=== PATIENT | male | born 1940 | race Caucasian/White ===

== ENCOUNTER 2024-08-11 17:17 | Inpatient (IN) ==
--- NOTE | 2024-08-11 17:36 | Emergency Department Note ---
Impression & Plan Sepsis, Non-ST elevation [place] (NSTEMI), Leukocytosis, Aspiration pneumonia ED Provider Note NAME: NU WILLARD AGE: 83 SEX: M : 1940 ARRIVES VIA: Walk-In INFORMANT: Patient ED PROVIDER(S): Shukri Mercado MD CHIEF COMPLAINT: Feverish, shortness of breath, cough, vomiting. PLAN: Disposition: Admit MEDICAL DECISION MAKING: The patient is a pleasant 83-year-old gentleman with past medical history of CAD with history of PCI remotely on low-dose aspirin daily, GERD who presents to the emergency department via walk-in, accompanied by family for worsening cough, congestion, shortness of breath, feverishness and nausea and vomiting that worsened today in the setting of starting to feel ill on Friday. 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 Patient reports numerous episodes of vomiting prior to arrival. He denies any diarrhea. Denies any urinary symptoms. He denies any known sick contacts. On evaluation the patient is ill-appearing in acute distress, febrile to 37.6 with heart rate in the 120s, respiratory rate in the 30s and blood pressure elevated. He appears clinically dry. He has rhonchi of bilateral lower lung calderón. Abdomen is nontender. Initial EKG demonstrates sinus tachycardia with marked ST abnormalities in the precordial leads without overt ST elevation. Repeat EKG following defervesced since and IV fluid hydration shows improved ST abnormalities. Chest x-ray with venous congestion with suspicion for patchy bibasilar infiltrates per my preliminary independent interpretation. WBC 18.25 with neutrophilia but no left shift. H/H and plates within normal limits. Magnesium 1.6 with IV repletion provided. LFTs unremarkable. High- sensitivity troponin is 300. Lipase is not elevated. Procalcitonin is elevated at 5.2 consistent with suspicion for infection and sepsis. Respiratory BioFire was negative. Blood culture obtained empiric treatment initiated with IV Zosyn. Repeat troponin 500s. Patient continues to deny chest pain. Repeat EKG is improved. IV heparin initiated. Aspirin deferred pending CT results. CTA of the chest and CT of the abdomen pelvis were ordered and pending. The patient and family agree with plan for admission for further management. Case was discussed with Dr. Barragan, [facility] hospitalist, who will evaluate the patient for admission. Further management per admitting team. CTA of the chest subsequently negative for PE. Evidence of aspiration is described. CT of the abdomen pelvis is negative for acute intra-abdominal process. Small hiatal hernia is present. Cholelithiasis present without evidence of cholecystitis or ductal dilatation. Further management per admitting team. Triage Nursing notes reviewed and agree them. Prior/external medical records reviewed Vital Signs: reviewed Differential diagnosis: Reactive airway disease, pneumonia, pneumothorax, COPD, CHF, infections, cardiac ischemia, pulmonary embolism, musculoskeletal, gastrointestinal, as well as other pathologies. ER treatment provided: See below. Diagnostics interpreted by me: ECG 1744: Sinus tachycardia, 117 bpm, no ectopy, marked ST abnormalities in the precordial leads without overt ST elevation. QTc 438, QRS 96. ECG 1942:Sinus tachycardia, 87 bpm, improved ST abnormalities without overt ST elevation, QTc 442, QRS 94. Cardiac Monitoring: An order for continuous cardiac monitoring was placed and demonstrated sinus tachycardia, 117 bpm, no ectopy. Laboratory studies: See below Imaging studies: See below Consultation(s): Case was discussed with Dr. Barragan, [facility] Hospitalist, who will evaluate the patient for admission. HPI: The patient is a pleasant 83-year-old gentleman with past medical history of CAD with history of PCI remotely on low-dose aspirin daily, GERD who presents to the emergency department via walk-in, accompanied by family for worsening cough, congestion, shortness of breath, feverishness and nausea and vomiting that worsened today in the setting of starting to feel ill on Friday. 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 Patient reports numerous episodes of vomiting prior to arrival. He denies any diarrhea. Denies any urinary symptoms. He denies any known sick contacts. ROS: See above HPI for pertinent positives & negatives. A total of 10 systems reviewed and were otherwise negative. VITALS:See Below PHYSICAL EXAMINATION: GENERAL: Awake, alert, ill-appearing, in no distress HENT: Normocephalic, atraumatic. Oropharynx with dry mucous membranes and otherwise unremarkable. EYES: Normal conjunctiva. Sclera non-icteric. NECK: Supple. No nuchal rigidity. FROM. No JVD. RESPIRATORY: Rhonchi bilateral lower lung calderón and otherwise clear. CARDIAC: Tachycardic rate, normal rhythm. Extremities warm and well perfused. Pulses equal. ABDOMEN: Soft, non-distended. No tenderness to palpation. No rebound or guarding. No masses. MUSCULOSKELETAL: Chest examination reveals no tenderness. The back is symmetrical on inspection without obvious abnormality. There is no CVA tenderness to palpation. No joint edema. LOWER EXTREMITIES: Calves are equal size bilaterally and non-tender. No edema. No discoloration. NEURO: Normal sensorium. No sensory or motor deficits noted. SKIN: No rash or jaundice noted. ED COURSE: Critical Care: I have personally spent greater than 45 minutes of critical care time in the direct management of this patient. This includes bedside care, interpretation of diagnostic studies, and testing, discussion with consultants, patient, and family members, and other required patient management activities. This 45 minutes is in excess of all separately billable procedures. Shukri Mercado MD Past Med/Surg History Problem List (Updated 08/12/24 @ 01:18 by Shukri Mercado MD) Aspiration pneumonia (Acute) Leukocytosis (Acute) Non-ST elevation KS (NSTEMI) (Acute) Sepsis (Acute) Medical History Hx of gastroesophageal reflux (GERD) Coronary artery disease Surgical History History of coronary artery stent placement Social History Smoking Status: Never smoker Hx Alcohol Use: No Hx Substance Use: No Preferred Language: Nepalese Communication Ability: Effective Recooperer Required: No Beliefs That Will Affect Care: None Current Living Situation: Spouse Feels Safe at Home: Yes Safety Concerns: Feels Safe At This Time Assistive Devices: Denture - Upper and Denture - Lower Allergies Allergies Allergy/AdvReac Type Severity Reaction Status Date / Time No Known Allergies Allergy Verified 08/11/24 19:43 Home Meds Home Medications Medication Instructions Recorded Confirmed albuterol sulfate 90 mcg/actuation 2 puff inhalation DIRECTED PRN 08/11/24 08/11/24 aerosol inhaler Shortness Of Breath amlodipine 10 mg tablet (Norvasc) 10 mg PO DAILY 08/11/24 08/11/24 aspirin 81 mg tablet,delayed 81 mg PO DAILY 08/11/24 08/11/24 release famotidine 40 mg tablet 20 mg PO BID 08/11/24 08/11/24 lisinopril 10 mg tablet 10 mg PO DAILY 08/11/24 08/11/24 loratadine 5 mg-pseudoephedrine ER 1 tab PO DAILY 08/11/24 08/11/24 120 mg tablet,extended release,12hr (Loratadine-D) metoprolol tartrate 25 mg tablet 25 mg PO BID 08/11/24 08/11/24 nitroglycerin 0.4 mg sublingual 0.4 mg sublingual DIRECTED PRN 08/11/24 08/11/24 tablet Chest Pain omeprazole 20 mg capsule,delayed 20 mg PO DAILY 08/11/24 08/11/24 release ondansetron HCl 4 mg tablet 4 mg PO TID PRN NAUSEA/VOMITING 08/11/24 08/11/24 rosuvastatin 20 mg tablet 20 mg PO DAILY 08/11/24 08/11/24 Results & Data (ED) Vital Signs Vital Signs - 24 hr 08/11/24 17:19 08/11/24 17:31 08/11/24 17:51 Temperature 37.6 C H Temperature Source Temporal Artery Scan Pulse Rate 124 H 120 H Pulse Rate [Apical] 118 H Pulse Rhythm Regular Pulse Strength Normal Respiratory Rate 20 24 24 Respiratory Effort / Characteristics Non-Labored Spontaneous Respiratory Depth Normal Blood Pressure 146/86 H Blood Pressure [Left Arm] 154/108 H Blood Pressure Mean 106 Blood Pressure Mean [Left Arm] 123 Blood Pressure Position Sitting Blood Pressure Position [Left Arm] Pulse Oximetry 92 94 95 Oxygen Delivery Method Room Air Room Air Room Air Sepsis Recent Fever Within 48 Hours No Sepsis New/Unexplained Change in Mental Status No Sepsis Action Taken by Nursing No Action Required 08/11/24 17:53 08/11/24 19:34 08/11/24 21:00 Temperature 37.2 C Temperature Source Oral Pulse Rate 120 H Pulse Rate [Apical] 104 H 97 H Pulse Rhythm Pulse Strength Respiratory Rate 30 H 18 Respiratory Effort / Characteristics Respiratory Depth Blood Pressure Blood Pressure [Left Arm] 112/75 119/72 Blood Pressure Mean Blood Pressure Mean [Left Arm] 87 87 Blood Pressure Position Blood Pressure Position [Left Arm] Semi-fowlers Pulse Oximetry 91 93 Oxygen Delivery Method Room Air Room Air Sepsis Recent Fever Within 48 Hours Sepsis New/Unexplained Change in Mental Status Sepsis Action Taken by Nursing 08/11/24 21:53 Temperature Temperature Source Pulse Rate 103 H Pulse Rate [Apical] Pulse Rhythm Pulse Strength Respiratory Rate Respiratory Effort / Characteristics Respiratory Depth Blood Pressure Blood Pressure [Left Arm] Blood Pressure Mean Blood Pressure Mean [Left Arm] Blood Pressure Position Blood Pressure Position [Left Arm] Pulse Oximetry Oxygen Delivery Method Sepsis Recent Fever Within 48 Hours Sepsis New/Unexplained Change in Mental Status Sepsis Action Taken by Nursing Laboratory Data Attestation: I reviewed the patient's lab results. 08/11/24 18:01 08/11/24 18:01 Lab Results 08/11/24 08/11/24 08/11/24 Range/Units 17:48 18:01 19:23 WBC 18.25 H (4.8-10.8) K/ul RBC 4.98 (4.70-6.10) M/uL Hgb 14.8 (14.0-18.0) g/dl Hct 45.9 (42.0-52.0) % MCV 92.2 (80.0-100.0) fL MCH 29.7 (25.0-34.0) pg MCHC 32.2 (32.0-36.0) g/dL RDW Std Deviation 47.3 H (36.4-46.3) fL RDW Coeff of Mandeep 14.0 (11.5-14.5) % Plt Count 169 (130-400) K/uL MPV 10.0 (9.4-12.4) fL Immature Gran % (Auto) 0.6 % Neut % (Auto) 94.4 % Lymph % (Auto) 1.2 % Elbert % (Auto) 2.9 % Eos % (Auto) 0.6 % Baso % (Auto) 0.3 % Neut # (Auto) 17.24 H (1.40-6.50) K/uL Lymph # (Auto) 0.21 L (1.20-3.40) K/uL Elbert # (Auto) 0.53 (0.11-0.59) K/uL Eos # (Auto) 0.11 (0.00-0.50) K/uL Baso # (Auto) 0.05 (0.00-0.20) K/uL Immature Gran # (Auto) 0.11 (0.01-0.20) K/uL RBC Morphology Unremarkable PT 11.2 (9.0-12.0) Seconds INR 1.0 (0.9-1.1) Sodium 138 (136-145) mmol/L Potassium 4.6 (3.5-5.1) mmol/L Chloride 102 (98-107) mmol/L Carbon Dioxide 25 (21-32) mmol/L Anion Gap 11 (3-11) BUN 18 (6-23) mg/dl Creatinine 1.64 H (0.6-1.4) mg/dl Est Cr Clr Drug Dosing Not Reportable eGFR 41.76 BUN/Creatinine Ratio 11.0 (10-20) Glucose 119 H (70-99(Fasting)) mg/dl Lactate 3.5 H* (0.4-2.0) mmol/L Calcium 9.6 (8.6-10.3) mg/dl Magnesium 1.6 L (1.7-2.4) mg/dl Total Bilirubin 0.8 (0.2-1.0) mg/dl Direct Bilirubin 0.2 (0-0.2) mg/dl AST 23 (13-39) U/L ALT 19 (7-52) U/L Alkaline Phosphatase 66 (34-104) U/L Troponin I High Sens 331.2 H* 529.3 H* D (0-20) pg/ml Total Protein 7.0 (6.0-8.3) gm/dl Albumin 4.3 (3.4-5.0) gm/dl Globulin 2.7 (2.5-4.0) gm/dl Albumin/Globulin Ratio 1.6 (0.9-2) Lipase 11 (11-82) U/L Procalcitonin 5.25 H (0-0.5) ng/ml Nasal Screen MRSA (PCR) (Negative) Adenovirus (PCR) Not Detected (NotDetected) B. pertussis DNA (PCR) Not Detected (NotDetected) B.parapertussis DNA PCR Not Detected (NotDetected) C. pneumoniae DNA (PCR) Not Detected (NotDetected) Coronavirus OC43 (PCR) Not Detected (NotDetected) Coronavirus HKU1 (PCR) Not Detected (NotDetected) Coronavirus 229E (PCR) Not Detected (NotDetected) SARS-CoV-2 (PCR) Not Detected (NotDetected) Coronavirus NL63 (PCR) Not Detected (NotDetected) Human Metapneumovir PCR Not Detected (NotDetected) Influenza Type A (PCR) Not Detected (NotDetected) Influenza Type B (PCR) Not Detected (NotDetected) M. pneumoniae (PCR) Not Detected (NotDetected) Parainfluenza 1 (PCR) Not Detected (NotDetected) Parainfluenza 2 (PCR) Not Detected (NotDetected) Parainfluenza 3 (PCR) Not Detected (NotDetected) Parainfluenza 4 (PCR) Not Detected (NotDetected) RSV (PCR) Not Detected (NotDetected) Entero/Rhino (PCR) Not Detected (NotDetected) 08/11/24 08/11/24 Range/Units 20:30 21:26 WBC (4.8-10.8) K/ul RBC (4.70-6.10) M/uL Hgb (14.0-18.0) g/dl Hct (42.0-52.0) % MCV (80.0-100.0) fL MCH (25.0-34.0) pg MCHC (32.0-36.0) g/dL RDW Std Deviation (36.4-46.3) fL RDW Coeff of Mandeep (11.5-14.5) % Plt Count (130-400) K/uL MPV (9.4-12.4) fL Immature Gran % (Auto) % Neut % (Auto) % Lymph % (Auto) % Elbert % (Auto) % Eos % (Auto) % Baso % (Auto) % Neut # (Auto) (1.40-6.50) K/uL Lymph # (Auto) (1.20-3.40) K/uL Elbert # (Auto) (0.11-0.59) K/uL Eos # (Auto) (0.00-0.50) K/uL Baso # (Auto) (0.00-0.20) K/uL Immature Gran # (Auto) (0.01-0.20) K/uL RBC Morphology PT (9.0-12.0) Seconds INR (0.9-1.1) Sodium (136-145) mmol/L Potassium (3.5-5.1) mmol/L Chloride (98-107) mmol/L Carbon Dioxide (21-32) mmol/L Anion Gap (3-11) BUN (6-23) mg/dl Creatinine (0.6-1.4) mg/dl Est Cr Clr Drug Dosing eGFR BUN/Creatinine Ratio (10-20) Glucose (70-99(Fasting)) mg/dl Lactate 3.0 H* (0.4-2.0) mmol/L Calcium (8.6-10.3) mg/dl Magnesium (1.7-2.4) mg/dl Total Bilirubin (0.2-1.0) mg/dl Direct Bilirubin (0-0.2) mg/dl AST (13-39) U/L ALT (7-52) U/L Alkaline Phosphatase (34-104) U/L Troponin I High Sens (0-20) pg/ml Total Protein (6.0-8.3) gm/dl Albumin (3.4-5.0) gm/dl Globulin (2.5-4.0) gm/dl Albumin/Globulin Ratio (0.9-2) Lipase (11-82) U/L Procalcitonin (0-0.5) ng/ml Nasal Screen MRSA (PCR) Negative (Negative) Adenovirus (PCR) (NotDetected) B. pertussis DNA (PCR) (NotDetected) B.parapertussis DNA PCR (NotDetected) C. pneumoniae DNA (PCR) (NotDetected) Coronavirus OC43 (PCR) (NotDetected) Coronavirus HKU1 (PCR) (NotDetected) Coronavirus 229E (PCR) (NotDetected) SARS-CoV-2 (PCR) (NotDetected) Coronavirus NL63 (PCR) (NotDetected) Human Metapneumovir PCR (NotDetected) Influenza Type A (PCR) (NotDetected) Influenza Type B (PCR) (NotDetected) M. pneumoniae (PCR) (NotDetected) Parainfluenza 1 (PCR) (NotDetected) Parainfluenza 2 (PCR) (NotDetected) Parainfluenza 3 (PCR) (NotDetected) Parainfluenza 4 (PCR) (NotDetected) RSV (PCR) (NotDetected) Entero/Rhino (PCR) (NotDetected) Administered Medications Heparin Sodium/Dextrose (Heparin 60407 Unit/500 Ml D5w) 25,000 units in 500 mls @ 19 mls/hr IV .Q24H JACK; Protocol Stop: 09/10/24 20:44 Last Admin: 08/11/24 21:25 Dose: 950 units/hr, 19 mls/hr Documented By: KAROLINA Co-signed By: IDNadine Sodium Chloride (Nss) 1,000 mls @ 100 mls/hr IV .Q10H JACK Stop: 08/12/24 21:44 Last Admin: 08/11/24 22:40 Dose: 100 mls/hr Documented By: KAROLINA Discontinued Medications Heparin Sodium (Porcine) (Heparin Sod (Porcine) 1000 Unit/Ml) 1 units IV NOW ONE Stop: 08/11/24 20:45 Last Admin: 08/11/24 21:25 Dose: 4,000 units Documented By: KAROLINA Co-signed By: TAYLOR Heparin Sodium/Dextrose (Heparin Iv Adult Wt-Based Low-Dose W/ Initial Bolus Protocol) 1 each IV NOW STA; Protocol Stop: 08/11/24 20:29 Last Admin: 08/11/24 20:59 Dose: 1 each Documented By: KAROLINA Acetaminophen (Ofirmev) 1,000 mg in 100 mls @ 400 mls/hr IV NOW STA Stop: 08/11/24 17:46 Last Infusion: 08/11/24 18:26 Dose: Infused Documented By: Admin: 08/11/24 18:02 Dose: 400 mls/hr Documented By: QGV Famotidine (Pepcid 20mg Iv Push) 20 mg in 5 mls @ 2.5 mls/min IV NOW STA Stop: 08/11/24 17:33 Last Admin: 08/11/24 18:03 Dose: 2.5 mls/min Documented By: QGV Sodium Chloride (Nss) 500 mls @ 999 mls/hr IV .Q31M ONE Stop: 08/11/24 18:03 Last Infusion: 08/11/24 18:39 Dose: Infused Documented By: Admin: 08/11/24 18:03 Dose: 999 mls/hr Documented By: QGV Magnesium Sulfate/Dextrose (Magnesium Sulfate / D5w) 1 gm in 100 mls @ 100 mls/hr IV NOW STA Stop: 08/11/24 20:08 Last Infusion: 08/11/24 21:40 Dose: Infused Documented By: Admin: 08/11/24 19:45 Dose: 100 mls/hr Documented By: KAROLINA Sodium Chloride (Nss) 1,000 mls @ 999 mls/hr IV .Q1H1M ONE Stop: 08/11/24 20:12 Last Infusion: 08/11/24 21:00 Dose: Infused Documented By: Admin: 08/11/24 19:36 Dose: 999 mls/hr Documented By: KAROLINA Piperacillin Sod/Tazobactam Sod (Zosyn) 4.5 gm in 100 mls @ 200 mls/hr IV NOW ONE; Protocol Stop: 08/11/24 19:41 Last Infusion: 08/11/24 21:00 Dose: Infused Documented By: Admin: 08/11/24 19:44 Dose: 200 mls/hr Documented By: KAROLINA Sodium Chloride (Nss) 500 mls @ 999 mls/hr IV .Q31M ONE Stop: 08/11/24 19:42 Last Infusion: 08/11/24 21:40 Dose: Infused Documented By: Admin: 08/11/24 20:53 Dose: 999 mls/hr Documented By: KAROLINA Vancomycin HCl 2,000 mg/ (Sodium Chloride) 540 mls @ 200 mls/hr IV NOW ONE Stop: 08/12/24 00:41 Last Admin: 08/11/24 22:40 Dose: 200 mls/hr Documented By: KAROLINA Magnesium Sulfate/Dextrose (Magnesium Sulfate / D5w) 1 gm in 100 mls @ 50 mls/hr IV ONE ONE Stop: 08/12/24 00:37 Last Infusion: 08/12/24 00:57 Dose: Infused Documented By: Admin: 08/11/24 23:16 Dose: 50 mls/hr Documented By: SALINAS Ioversol (Optiray 320 125ml) 115 ml IV ONCE ONE Stop: 08/11/24 20:10 Last Admin: 08/11/24 20:09 Dose: 115 ml Documented By: JACKLYN Ondansetron HCl (Ondansetron Inj 2 Mg/Ml 2 Ml Vial) 4 mg IV NOW STA Stop: 08/11/24 17:33 Last Admin: 08/11/24 18:03 Dose: 4 mg Documented By: QGV Imaging Data Radiologist's Impression: Chest X-Ray 08/11/24 17:31 INDICATION: Chest pain. TECHNIQUE: Frontal radiograph of the chest. COMPARISON: None. FINDINGS: Cardiomegaly. Mild to moderate pulmonary vascular congestion. No infiltrate, pleural effusion or pneumothorax. No acute osseous abnormality evident. IMPRESSION: Mild to moderate pulmonary vascular congestion. Electronically signed by Joe Beckman 08-11-2024 7:09 PM Abdomen/Pelvis CT 08/11/24 19:10 Exam(s): CT ABDOMEN + PELVIS With Contrast IV Amt: 115 ml optiray 320 EXAM: CT Abdomen and Pelvis With Intravenous Contrast CLINICAL HISTORY: Reason for exam: n/v, fever. TECHNIQUE: Axial computed tomography images of the abdomen and pelvis with intravenous contrast. CTDI is 35.62 mGy and DLP is 2285.06 mGy-cm. Automated exposure control was utilized for the study. A dose lowering technique was utilized adhering to the principles of ALARA. CONTRAST: Patient received 115 ml optiray 320 of IV contrast COMPARISON: No relevant prior studies available. FINDINGS: Lung bases: Unremarkable. No mass. No consolidation. Mediastinum: There is moderate sized hiatus hernia. ABDOMEN: Liver: Unremarkable. No mass. Gallbladder and bile ducts: Multiple dependent gallstones. No ductal dilation. Pancreas: Unremarkable. No mass. No ductal dilation. Spleen: Unremarkable. No splenomegaly. Adrenals: Unremarkable. No mass. Kidneys and ureters: Unremarkable. No solid mass. No hydronephrosis. Stomach and bowel: Unremarkable. No obstruction. No mucosal thickening. PELVIS: Appendix: Normal appendix. Bladder: Unremarkable. No mass. Reproductive: Mild prostatomegaly. ABDOMEN and PELVIS: Intraperitoneal space: Unremarkable. No free air. No significant fluid collection. Bones/joints: Moderately advanced multilevel degenerative disc disease changes seen in the lumbar spine. Posterior disc osteophyte complex seen at L2/3, L4/5 and L5/S1 junction. No acute fracture. No dislocation. Soft tissues: Unremarkable. Vasculature: Unremarkable. No abdominal aortic aneurysm. Lymph nodes: Unremarkable. No enlarged lymph nodes. IMPRESSION: 1. No acute abdominal process identified 2. Small hiatus hernia 3. Cholelithiasis Electronically signed by: Chema Ashby MD 08/11/24 21:40 PM Chest CTA 08/11/24 19:10 Exam(s): CTA CHEST IV Amt: 115 ml optiray 320 EXAM: CT Angiography Chest With Intravenous Contrast CLINICAL HISTORY: Reason for exam: vomiting, sob, elevated trop, r/o PE. TECHNIQUE: Axial computed tomographic angiography images of the chest with intravenous contrast. CTDI is 35.62 mGy and DLP is 2285.06 mGy-cm. Automated exposure control was utilized for the study. A dose lowering technique was utilized adhering to the principles of ALARA. MIP reconstructed images were created and reviewed. COMPARISON: No relevant prior studies available. FINDINGS: Pulmonary arteries: Unremarkable. No pulmonary embolism. Aorta: No acute findings. No thoracic aortic aneurysm. Lungs: Patchy inflammatory groundglass densities are seen in the lingula. Discoid atelectasis seen in the lung bases. No mass. Pleural space: Unremarkable. No significant effusion. No pneumothorax. Heart: Unremarkable. No cardiomegaly. No significant pericardial effusion. No evidence of RV dysfunction. Mediastinum: Moderate sized hiatus hernia. Bones/joints: No acute fracture. No dislocation. Soft tissues: Unremarkable. Lymph nodes: Unremarkable. No enlarged lymph nodes. IMPRESSION: 1. Patchy inflammatory groundglass densities in the lingula which could be from aspiration changes 2. No acute pulmonary embolism 3. Hiatus hernia Electronically signed by: Chema Ashby MD 08/11/24 21:43 PM Discharge Plan Visit Data Chief Complaint: Flu Like Symptoms Stated Complaint: VOMIT, FLU LIKE SYMPTOMS ED Provider: Shukri Mercado Discharge Problem: Sepsis, Non-ST elevation [place] (NSTEMI), Leukocytosis, Aspiration pneumonia Discharge Instructions Interventions: ED Discharge Assessment Last Done: 08/12/24 00:20 Discharge Problem: Sepsis Qualifiers: Sepsis type: sepsis due to unspecified organism Sepsis acute organ dysfunction status: with acute organ dysfunction Severe sepsis acute organ dysfunction type: unspecified Severe sepsis shock status: without septic shock Qualified Code(s): A41.9 - Sepsis, unspecified organism Leukocytosis Qualifiers: Leukocytosis type: unspecified Qualified Code(s): D72.829 - Elevated white blood cell count, unspecified Aspiration pneumonia Qualifiers: Aspiration pneumonia type: unspecified Laterality: bilateral Lung location: l ower lobe of lung Qualified Code(s): J69.0 - Pneumonitis due to inhalation of food and vomit
[2024-08-11] MEDS: ACETAMINOPHEN 1,000 MG/100 ML VIAL IV STA (18:02)
[2024-08-11] MEDS: ONDANSETRON INJ 2 MG/ML 2 ML VIAL IV STA (18:03)
[2024-08-11] MEDS: FAMOTIDINE 20MG IV PUSH 20 MG/5 ML SYR IV STA (18:03)
[2024-08-11] MEDS: SODIUM CHLORIDE 0.9% 500 ML IV ONE ×2 (18:03→20:53)
[2024-08-11 18:35] LABS: Hematocrit (blood only) 45.9 % (42.0-52.0); Hemoglobin 14.8 g/dl (14.0-18.0); Mean Corpuscular Hemoglobin 29.7 pg (25.0-34.0); Mean Corpuscular Hgb Conc 32.2 g/dL (32.0-36.0); Mean Corpuscular Volume 92.2 fL (80.0-100.0); Platelet Count 169 K/uL (130-400); RDW Standard Deviation 47.3 fL (36.4-46.3); Red Blood Count 4.98 M/uL (4.70-6.10); White Blood Count 18.25 K/ul (4.8-10.8)
[2024-08-11 18:51] LABS: Basophils # (auto) 0.05 K/uL (0.00-0.20); Basophils % (auto) 0.3 %; Eosinophils # (auto) 0.11 K/uL (0.00-0.50); Eosinophils % (auto) 0.6 %; Immature Granulocytes # (auto) 0.11 K/uL (0.01-0.20); Immature Granulocytes % (auto) 0.6 %; Lymphocytes # (auto) 0.21 K/uL (1.20-3.40); Lymphocytes % (auto) 1.2 %; Monocytes # (auto) 0.53 K/uL (0.11-0.59); Monocytes % (auto) 2.9 %; Neutrophils # (auto) 17.24 K/uL (1.40-6.50); Neutrophils % (auto) 94.4 %; RBC Morphology Unremarkable
[2024-08-11 18:52] LABS: Alanine Aminotransferase 19 U/L (7-52); Albumin Globulin Ratio 1.6 (0.9-2); Albumin Level 4.3 gm/dl (3.4-5.0); Alkaline Phosphatase 66 U/L (34-104); Anion Gap 11 (3-11); Aspartate Aminotransferase 23 U/L (13-39); Bilirubin Direct 0.2 mg/dl (0-0.2); Bilirubin,Total 0.8 mg/dl (0.2-1.0); Blood Urea Nitrogen 18 mg/dl (6-23); Calcium 9.6 mg/dl (8.6-10.3); Carbon Dioxide 25 mmol/L (21-32); Chloride 102 mmol/L (98-107); Globulin 2.7 gm/dl (2.5-4.0); Glucose 119 mg/dl (70-99(Fasting)); Lipase 11 U/L (11-82); Magnesium 1.6 mg/dl (1.7-2.4); Potassium 4.6 mmol/L (3.5-5.1); Sodium 138 mmol/L (136-145)
[2024-08-11 18:56] LABS: Adenovirus PCR Not Detected (NotDetected); Bordetella parapertussis PCR Not Detected (NotDetected); Bordetella pertussis PCR Not Detected (NotDetected); Chlamydia pneumoniae PCR Not Detected (NotDetected); Coronavirus 229E PCR Not Detected (NotDetected); Coronavirus CoV-2 (COVID19)PCR Not Detected (NotDetected); Coronavirus HKU1 PCR Not Detected (NotDetected); Coronavirus NL63 PCR Not Detected (NotDetected); Coronavirus OC43PCR Not Detected (NotDetected); Human Metapneumovirus PCR Not Detected (NotDetected); Influenza A PCR Not Detected (NotDetected); Influenza B PCR Not Detected (NotDetected); Mycoplasma pneumoniae PCR Not Detected (NotDetected); Parainfluenza Virus 1 PCR Not Detected (NotDetected); Parainfluenza Virus 2 PCR Not Detected (NotDetected); Parainfluenza Virus 3 PCR Not Detected (NotDetected); Parainfluenza Virus 4 PCR Not Detected (NotDetected); Respiratory Syncytial VirusPCR Not Detected (NotDetected); Rhinovirus/Enterovirus PCR Not Detected (NotDetected)
[2024-08-11 19:03] LABS: Prothrombin Time 11.2 Seconds (9.0-12.0)
[2024-08-11 19:06] LABS: Troponin I High Sensitivity 331.2 pg/ml (0-20)
--- NOTE | 2024-08-11 19:10 | XRay Report ---
INDICATION: Chest pain. TECHNIQUE: Frontal radiograph of the chest. COMPARISON: None. FINDINGS: Cardiomegaly. Mild to moderate pulmonary vascular congestion. No infiltrate, pleural effusion or pneumothorax. No acute osseous abnormality evident. IMPRESSION: Mild to moderate pulmonary vascular congestion. Electronically signed by Joe Beckman 08-11-2024 7:09 PM
[2024-08-11] MEDS: SODIUM CHLORIDE 0.9% 1,000 ML IV ONE (19:36)
[2024-08-11] MEDS: PIPERACILLIN/TAZOBACTAM 4.5 GM/100 ML BAG IV ONE (19:44)
[2024-08-11] MEDS: MAGNESIUM SULFATE / D5W 1 GM/100 ML BAG IV STA (19:45)
[2024-08-11] MEDS: OPTIRAY 320 125ml IV ONE (20:09)
[2024-08-11] MEDS: Heparin IV Adult Wt-Based Low-Dose w/ INITIAL Bolus Protocol IV STA (20:59)
[2024-08-11] MEDS: HEPARIN 25000 UNIT/500 ML D5W 25,000 UNITS/500 ML BAG IV SCH (21:25)
[2024-08-11] MEDS: HEPARIN SOD (PORCINE) 1000 UNIT/ML IV ONE (21:25)
--- NOTE | 2024-08-11 21:41 | CT Scan Report ---
Exam(s): CT ABDOMEN + PELVIS With Contrast IV Amt: 115 ml optiray 320 EXAM: CT Abdomen and Pelvis With Intravenous Contrast CLINICAL HISTORY: Reason for exam: n/v, fever. TECHNIQUE: Axial computed tomography images of the abdomen and pelvis with intravenous contrast. CTDI is 35.62 mGy and DLP is 2285.06 mGy-cm. Automated exposure control was utilized for the study. A dose lowering technique was utilized adhering to the principles of ALARA. CONTRAST: Patient received 115 ml optiray 320 of IV contrast COMPARISON: No relevant prior studies available. FINDINGS: Lung bases: Unremarkable. No mass. No consolidation. Mediastinum: There is moderate sized hiatus hernia. ABDOMEN: Liver: Unremarkable. No mass. Gallbladder and bile ducts: Multiple dependent gallstones. No ductal dilation. Pancreas: Unremarkable. No mass. No ductal dilation. Spleen: Unremarkable. No splenomegaly. Adrenals: Unremarkable. No mass. Kidneys and ureters: Unremarkable. No solid mass. No hydronephrosis. Stomach and bowel: Unremarkable. No obstruction. No mucosal thickening. PELVIS: Appendix: Normal appendix. Bladder: Unremarkable. No mass. Reproductive: Mild prostatomegaly. ABDOMEN and PELVIS: Intraperitoneal space: Unremarkable. No free air. No significant fluid collection. Bones/joints: Moderately advanced multilevel degenerative disc disease changes seen in the lumbar spine. Posterior disc osteophyte complex seen at L2/3, L4/5 and L5/S1 junction. No acute fracture. No dislocation. Soft tissues: Unremarkable. Vasculature: Unremarkable. No abdominal aortic aneurysm. Lymph nodes: Unremarkable. No enlarged lymph nodes. IMPRESSION: 1. No acute abdominal process identified 2. Small hiatus hernia 3. Cholelithiasis Electronically signed by: Chema Ashby MD 08/11/24 21:40 PM
[2024-08-11] MEDS ORDERED: VANCOMYCIN CONSULT ACTIVE PRN (21:42)
--- NOTE | 2024-08-11 21:44 | CT Scan Report ---
Exam(s): CTA CHEST IV Amt: 115 ml optiray 320 EXAM: CT Angiography Chest With Intravenous Contrast CLINICAL HISTORY: Reason for exam: vomiting, sob, elevated trop, r/o PE. TECHNIQUE: Axial computed tomographic angiography images of the chest with intravenous contrast. CTDI is 35.62 mGy and DLP is 2285.06 mGy-cm. Automated exposure control was utilized for the study. A dose lowering technique was utilized adhering to the principles of ALARA. MIP reconstructed images were created and reviewed. COMPARISON: No relevant prior studies available. FINDINGS: Pulmonary arteries: Unremarkable. No pulmonary embolism. Aorta: No acute findings. No thoracic aortic aneurysm. Lungs: Patchy inflammatory groundglass densities are seen in the lingula. Discoid atelectasis seen in the lung bases. No mass. Pleural space: Unremarkable. No significant effusion. No pneumothorax. Heart: Unremarkable. No cardiomegaly. No significant pericardial effusion. No evidence of RV dysfunction. Mediastinum: Moderate sized hiatus hernia. Bones/joints: No acute fracture. No dislocation. Soft tissues: Unremarkable. Lymph nodes: Unremarkable. No enlarged lymph nodes. IMPRESSION: 1. Patchy inflammatory groundglass densities in the lingula which could be from aspiration changes 2. No acute pulmonary embolism 3. Hiatus hernia Electronically signed by: Chema Ashby MD 08/11/24 21:43 PM
[2024-08-11] MEDS ORDERED: VANCOMYCIN HCL 1,000 MG/270 ML BAG IV SCH (21:45)
--- NOTE | 2024-08-11 22:38 | History & Physical Report ---
Date of Service August 11, 2024 Assessment & Plan (1) Sepsis: Plan: 83-year-old male unassigned patient with past med history significant for CAD status post stent in 2005, hypertension, hyperlipidemia, GERD presents with nausea vomiting and fevers. Patient says since Friday he was constipated. Last night had a lot of nausea and vomiting. Today was running fevers. Not feeling well. Says his grandson brought him to the hospital. Denies any chest pain. Denies cough. Denies shortness of breath. Denies any headache. No back pain. No neck pain. Some abdominal discomfort from constipation. Denies bloody stools. Micturating okay. Ambulates okay. 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 In 2017 he had a skull fracture as tractor tire blew and hit him on head and says he was in [facility] for 15 days. Currently hemodynamics are okay. Patient says he is follows with [facility] cardiology. Sepsis Was having nausea vomiting and fevers Presents with tachycardia and elevated WBC. Procalcitonin 5.2 Respiratory BioFire negative Received Zosyn and aggressive fluids in the ER CTA chest shows possible aspiration pneumonitis CT abdomen pelvis no acute findings. Cholelithiasis Initial lactic acid 3.5 and repeat is 3 Will continue with IV Zosyn and IV vancomycin and doxy IV fluids normal saline at 100 mL/h Follow repeat labs Follow cultures Close monitor hemodynamics Non-ST elevated AL Initial troponin 331 and repeat [address] depressions from lead V2 to V6 somewhat improved after fluids. No old EKG to compare Possible demand ischemia Patient denies any chest pain or shortness of breath Empirically started on IV heparin Will follow on serial enzymes and echo and repeat EKG in a.m. Telemetry N.p.o. Cardiac consult in a.m. for further recommendations History of CAD status post stent On aspirin and statin Will start on beta-xavier once sepsis improves Hypertension Holding lisinopril, amlodipine and metoprolol for now for sepsis Need to verify home medications. Not able to reach family currently GERD On omeprazole and famotidine Hyperlipidemia On statin DVT prophylaxis On IV heparin Disposition Telemetry Full code. History of Present Illness Chief Complaint: Sepsis Primary Care Provider: NO PCP 83-year-old male unassigned patient with past med history significant for CAD status post stent in 2005, hypertension, hyperlipidemia, GERD presents with nausea vomiting and fevers. Patient says since Friday he was constipated. Last night had a lot of nausea and vomiting. Today was running fevers. Not feeling well. Says his grandson brought him to the hospital. Denies any chest pain. Denies cough. Denies shortness of breath. Denies any headache. No back pain. No neck pain. Some abdominal discomfort from constipation. Denies bloody stools. Micturating okay. Ambulates okay. 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 In 2017 he had a skull fracture as tractor tire blew and hit him on head and says he was in [facility] for 15 days. Currently hemodynamics are okay. Patient says he is follows with [facility] cardiology. Past medical history. As mentioned above Past surgical history. Cardiac cath. Open skull for removal of hematoma bilateral in 2017. Repair of right eye socket. Repair of nasomaxillary complex fracture. Repair of right eye wound cornea. Social history. . No smoking. No alcohol history no drug use. Family history. No famished on file. Allergies Allergy/AdvReac Type Severity Reaction Status Date / Time No Known Allergies Allergy Verified 08/11/24 19:43 Home Medications Medication Instructions Recorded Confirmed Type albuterol sulfate 90 mcg/actuation 2 puff inhalation DIRECTED PRN 08/11/24 08/11/24 History aerosol inhaler Shortness Of Breath amlodipine 10 mg tablet (Norvasc) 10 mg PO DAILY 08/11/24 08/11/24 History aspirin 81 mg tablet,delayed 81 mg PO DAILY 08/11/24 08/11/24 History release famotidine 40 mg tablet 20 mg PO BID 08/11/24 08/11/24 History lisinopril 10 mg tablet 10 mg PO DAILY 08/11/24 08/11/24 History loratadine 5 mg-pseudoephedrine ER 1 tab PO DAILY 08/11/24 08/11/24 History 120 mg tablet,extended release,12hr (Loratadine-D) metoprolol tartrate 25 mg tablet 25 mg PO BID 08/11/24 08/11/24 History nitroglycerin 0.4 mg sublingual 0.4 mg sublingual DIRECTED PRN 08/11/24 08/11/24 History tablet Chest Pain omeprazole 20 mg capsule,delayed 20 mg PO DAILY 08/11/24 08/11/24 History release ondansetron HCl 4 mg tablet 4 mg PO TID PRN NAUSEA/VOMITING 08/11/24 08/11/24 History rosuvastatin 20 mg tablet 20 mg PO DAILY 08/11/24 08/11/24 History Past Med/Surg History Problem List (Updated 08/12/24 @ 01:18 by Shukri Mercado MD) Aspiration pneumonia (Acute) Leukocytosis (Acute) Non-ST elevation AL (NSTEMI) (Acute) Sepsis (Acute) Medical History Hx of gastroesophageal reflux (GERD) Coronary artery disease Surgical History History of coronary artery stent placement Social History Smoking Status: Never smoker Hx Alcohol Use: No Hx Substance Use: No Preferred Language: Kosovan Communication Ability: Effective Associate Financial Advisor Required: No Beliefs That Will Affect Care: None Current Living Situation: Spouse Feels Safe at Home: Yes Safety Concerns: Feels Safe At This Time Assistive Devices: Denture - Upper and Denture - Lower Review of Systems Review of Systems: All systems reviewed & are unremarkable except as noted in HPI & below Physical Exam Physical Exam: General- Not in acute distress Head- atraumatic Eyes- Right eye pupil fixed and dilated. ENT- oropharynx clear Neck- supple, no JVD. Lungs- clear to auscultation no wheezing or crackles Heart- regular rate and rhythm; no murmur, no gallop. Abdomen- normal bowel sounds, soft, nontender, no distension Extremities- no pretibial edema, no erythema seen Neuro- alert, oriented EOMI; no facial palsy; no dysarthria; moves extremities Results & Data Results & Data Vital Signs (Past 12 Hours) Vital Signs Temp Pulse Pulse Resp BP BP Pulse Ox 08/11/24 21:53 103 H 08/11/24 21:00 97 H 18 119/72 93 08/11/24 19:34 37.2 C 104 H 30 H 112/75 91 08/11/24 17:53 120 H 08/11/24 17:51 118 H 24 154/108 H 95 08/11/24 17:31 120 H 24 94 08/11/24 17:19 37.6 C H 124 H 20 146/86 H 92 O2 Del Method 08/11/24 21:53 08/11/24 21:00 Room Air 08/11/24 19:34 Room Air 08/11/24 17:53 08/11/24 17:51 Room Air 08/11/24 17:31 Room Air 08/11/24 17:19 Room Air Diagnostic Findings Laboratory Results WBC 18.25 K/ul (4.8-10.8) H 08/11/24 18:01 RBC 4.98 M/uL (4.70-6.10) 08/11/24 18:01 Hgb 14.8 g/dl (14.0-18.0) 08/11/24 18:01 Hct 45.9 % (42.0-52.0) 08/11/24 18:01 MCV 92.2 fL (80.0-100.0) 08/11/24 18:01 MCH 29.7 pg (25.0-34.0) 08/11/24 18:01 MCHC 32.2 g/dL (32.0-36.0) 08/11/24 18:01 RDW Std Deviation 47.3 fL (36.4-46.3) H 08/11/24 18:01 RDW Coeff of Mandeep 14.0 % (11.5-14.5) 08/11/24 18:01 Plt Count 169 K/uL (130-400) 08/11/24 18:01 MPV 10.0 fL (9.4-12.4) 08/11/24 18:01 Immature Gran % (Auto) 0.6 % 08/11/24 18:01 Neut % (Auto) 94.4 % 08/11/24 18:01 Lymph % (Auto) 1.2 % 08/11/24 18:01 Stanley % (Auto) 2.9 % 08/11/24 18:01 Eos % (Auto) 0.6 % 08/11/24 18:01 Baso % (Auto) 0.3 % 08/11/24 18:01 Neut # (Auto) 17.24 K/uL (1.40-6.50) H 08/11/24 18:01 Lymph # (Auto) 0.21 K/uL (1.20-3.40) L 08/11/24 18:01 Stanley # (Auto) 0.53 K/uL (0.11-0.59) 08/11/24 18:01 Eos # (Auto) 0.11 K/uL (0.00-0.50) 08/11/24 18:01 Baso # (Auto) 0.05 K/uL (0.00-0.20) 08/11/24 18:01 Immature Gran # (Auto) 0.11 K/uL (0.01-0.20) 08/11/24 18:01 RBC Morphology Unremarkable 08/11/24 18: PT 11.2 Seconds (9.0-12.0) 08/11/24 18: INR 1.0 (0.9-1.1) 08/11/24 18:01 Sodium 138 mmol/L (136-145) 08/11/24 18: Potassium 4.6 mmol/L (3.5-5.1) 08/11/24 18:01 Chloride 102 mmol/L (98-107) 08/11/24 18:01 Carbon Dioxide 25 mmol/L (21-32) 08/11/24 18:01 Anion Gap 11 (3-11) 08/11/24 18:01 BUN 18 mg/dl (6-23) 08/11/24 18:01 Creatinine 1.64 mg/dl (0.6-1.4) H 08/11/24 18:01 Est Cr Clr Drug Dosing Not Reportable 08/11/24 18: eGFR 41.76 08/11/24 18:01 BUN/Creatinine Ratio 11.0 (10-20) 08/11/24 18:01 Glucose 119 mg/dl (70-99(Fasting)) H 08/11/24 18:01 Lactate 3.0 mmol/L (0.4-2.0) H* 08/11/24 21:26 Calcium 9.6 mg/dl (8.6-10.3) 08/11/24 18:01 Magnesium 1.6 mg/dl (1.7-2.4) L 08/11/24 18:01 Total Bilirubin 0.8 mg/dl (0.2-1.0) 08/11/24 18:01 Direct Bilirubin 0.2 mg/dl (0-0.2) 08/11/24 18:01 AST 23 U/L (13-39) 08/11/24 18:01 ALT 19 U/L (7-52) 08/11/24 18:01 Alkaline Phosphatase 66 U/L (34-104) 08/11/24 18:01 Troponin I High Sens 529.3 pg/ml (0-20) H* D 08/11/24 19:23 Total Protein 7.0 gm/dl (6.0-8.3) 08/11/24 18: Albumin 4.3 gm/dl (3.4-5.0) 08/11/24 18: Globulin 2.7 gm/dl (2.5-4.0) 08/11/24 18: Albumin/Globulin Ratio 1.6 (0.9-2) 08/11/24 18:01 Lipase 11 U/L (11-82) 08/11/24 18:01 Procalcitonin 5.25 ng/ml (0-0.5) H 08/11/24 18:01 Nasal Screen MRSA (PCR) Negative (Negative) 08/11/24 20:30 Adenovirus (PCR) Not Detected (NotDetected) 08/11/24 17:48 B. pertussis DNA (PCR) Not Detected (NotDetected) 08/11/24 17:48 B.parapertussis DNA PCR Not Detected (NotDetected) 08/11/24 17:48 C. pneumoniae DNA (PCR) Not Detected (NotDetected) 08/11/24 17:48 Coronavirus OC43 (PCR) Not Detected (NotDetected) 08/11/24 17:48 Coronavirus HKU1 (PCR) Not Detected (NotDetected) 08/11/24 17:48 Coronavirus 229E (PCR) Not Detected (NotDetected) 08/11/24 17:48 SARS-CoV-2 (PCR) Not Detected (NotDetected) 08/11/24 17:48 Coronavirus NL63 (PCR) Not Detected (NotDetected) 08/11/24 17:48 Human Metapneumovir PCR Not Detected (NotDetected) 08/11/24 17:48 Influenza Type A (PCR) Not Detected (NotDetected) 08/11/24 17:48 Influenza Type B (PCR) Not Detected (NotDetected) 08/11/24 17:48 M. pneumoniae (PCR) Not Detected (NotDetected) 08/11/24 17:48 Parainfluenza 1 (PCR) Not Detected (NotDetected) 08/11/24 17:48 Parainfluenza 2 (PCR) Not Detected (NotDetected) 08/11/24 17:48 Parainfluenza 3 (PCR) Not Detected (NotDetected) 08/11/24 17:48 Parainfluenza 4 (PCR) Not Detected (NotDetected) 08/11/24 17:48 RSV (PCR) Not Detected (NotDetected) 08/11/24 17:48 Entero/Rhino (PCR) Not Detected (NotDetected) 08/11/24 17:48 Impressions Chest X-Ray 08/11/24 17:31 INDICATION: Chest pain. TECHNIQUE: Frontal radiograph of the chest. COMPARISON: None. FINDINGS: Cardiomegaly. Mild to moderate pulmonary vascular congestion. No infiltrate, pleural effusion or pneumothorax. No acute osseous abnormality evident. IMPRESSION: Mild to moderate pulmonary vascular congestion. Electronically signed by Joe Beckman 08-11-2024 7:09 PM Abdomen/Pelvis CT 08/11/24 19:10 Exam(s): CT ABDOMEN + PELVIS With Contrast IV Amt: 115 ml optiray 320 EXAM: CT Abdomen and Pelvis With Intravenous Contrast CLINICAL HISTORY: Reason for exam: n/v, fever. TECHNIQUE: Axial computed tomography images of the abdomen and pelvis with intravenous contrast. CTDI is 35.62 mGy and DLP is 2285.06 mGy-cm. Automated exposure control was utilized for the study. A dose lowering technique was utilized adhering to the principles of ALARA. CONTRAST: Patient received 115 ml optiray 320 of IV contrast COMPARISON: No relevant prior studies available. FINDINGS: Lung bases: Unremarkable. No mass. No consolidation. Mediastinum: There is moderate sized hiatus hernia. ABDOMEN: Liver: Unremarkable. No mass. Gallbladder and bile ducts: Multiple dependent gallstones. No ductal dilation. Pancreas: Unremarkable. No mass. No ductal dilation. Spleen: Unremarkable. No splenomegaly. Adrenals: Unremarkable. No mass. Kidneys and ureters: Unremarkable. No solid mass. No hydronephrosis. Stomach and bowel: Unremarkable. No obstruction. No mucosal thickening. PELVIS: Appendix: Normal appendix. Bladder: Unremarkable. No mass. Reproductive: Mild prostatomegaly. ABDOMEN and PELVIS: Intraperitoneal space: Unremarkable. No free air. No significant fluid collection. Bones/joints: Moderately advanced multilevel degenerative disc disease changes seen in the lumbar spine. Posterior disc osteophyte complex seen at L2/3, L4/5 and L5/S1 junction. No acute fracture. No dislocation. Soft tissues: Unremarkable. Vasculature: Unremarkable. No abdominal aortic aneurysm. Lymph nodes: Unremarkable. No enlarged lymph nodes. IMPRESSION: 1. No acute abdominal process identified 2. Small hiatus hernia 3. Cholelithiasis Electronically signed by: Chema Ashby MD 08/11/24 21:40 PM Chest CTA 08/11/24 19:10 Exam(s): CTA CHEST IV Amt: 115 ml optiray 320 EXAM: CT Angiography Chest With Intravenous Contrast CLINICAL HISTORY: Reason for exam: vomiting, sob, elevated trop, r/o PE. TECHNIQUE: Axial computed tomographic angiography images of the chest with intravenous contrast. CTDI is 35.62 mGy and DLP is 2285.06 mGy-cm. Automated exposure control was utilized for the study. A dose lowering technique was utilized adhering to the principles of ALARA. MIP reconstructed images were created and reviewed. COMPARISON: No relevant prior studies available. FINDINGS: Pulmonary arteries: Unremarkable. No pulmonary embolism. Aorta: No acute findings. No thoracic aortic aneurysm. Lungs: Patchy inflammatory groundglass densities are seen in the lingula. Discoid atelectasis seen in the lung bases. No mass. Pleural space: Unremarkable. No significant effusion. No pneumothorax. Heart: Unremarkable. No cardiomegaly. No significant pericardial effusion. No evidence of RV dysfunction. Mediastinum: Moderate sized hiatus hernia. Bones/joints: No acute fracture. No dislocation. Soft tissues: Unremarkable. Lymph nodes: Unremarkable. No enlarged lymph nodes. IMPRESSION: 1. Patchy inflammatory groundglass densities in the lingula which could be from aspiration changes 2. No acute pulmonary embolism 3. Hiatus hernia Electronically signed by: Chema Ashby MD 08/11/24 21:43 PM ECG Additional Comments: ECG. Sinus tach rate of 117. Marked ST abnormality possible septal subendocardial injury. QTc 438 Code Status & VTE Plan VTE Prophylaxis Plan VTE Prophylaxis will be ordered: Yes
[2024-08-11] MEDS: VANCOMYCIN HCL 2,000 MG in SODIUM CHLORIDE 0.9% 500 ML IV ONE (22:40)
[2024-08-11] MEDS: SODIUM CHLORIDE 0.9% 1,000 ML IV SCH (22:40)
[2024-08-11] MEDS: MAGNESIUM SULFATE / D5W 1 GM/100 ML BAG IV ONE (23:16)
[2024-08-12] MEDS ORDERED: ALBUTEROL HFA 8 GM INHALER INH PRN (00:19)
[2024-08-12] MEDS ORDERED: NITROGLYCERIN SL 0.4 MG/TAB TAB SL PRN (00:19)
[2024-08-12] MEDS ORDERED: ONDANSETRON INJ 2 MG/ML 2 ML VIAL IV PRN (00:19)
[2024-08-12 01:42] LABS: Appearance Urine Clear (Clear); Bacteria Urine Automated None Seen (None Seen); Bilirubin Urine Negative (Negative); Blood Urine Trace (Negative); Cast Urine Automated 0-2 /lpf (0-2); Color Urine Yellow; Epithelial Cell Urine Auto 0-2 /hpf (0-2); Glucose Urine UA Negative (Negative); Ketones Urine Negative (Negative); Leukocyte Esterase Urine Negative (Negative); Nitrite Urine Negative (Negative); Protein Urine Negative (Negative); Specific Gravity Urine > 1.045 (1.000-1.030); Urobilinogen Urine Negative (Negative); WBC Urine Automated 0-5 /hpf (0-5); pH Urine 6.5 (4.5-7.5)
[2024-08-12 03:53] LABS: Basophils # (auto) 0.04 K/uL (0.00-0.20); Basophils % (auto) 0.3 %; Eosinophils # (auto) 0.37 K/uL (0.00-0.50); Eosinophils % (auto) 2.9 %; Hematocrit (blood only) 42.7 % (42.0-52.0); Hemoglobin 13.7 g/dl (14.0-18.0); Immature Granulocytes # (auto) 0.04 K/uL (0.01-0.20); Immature Granulocytes % (auto) 0.3 %; Lymphocytes % (auto) 3.9 %; Mean Corpuscular Hemoglobin 30.2 pg (25.0-34.0); Mean Corpuscular Hgb Conc 32.1 g/dL (32.0-36.0); Mean Corpuscular Volume 94.1 fL (80.0-100.0); Mean Platelet Volume 9.7 fL (9.4-12.4); Monocytes # (auto) 0.44 K/uL (0.11-0.59); Monocytes % (auto) 3.4 %; Neutrophils # (auto) 11.51 K/uL (1.40-6.50); Neutrophils % (auto) 89.2 %; Platelet Count 167 K/uL (130-400); RDW Coefficient of Variation 14.4 % (11.5-14.5); RDW Standard Deviation 49.1 fL (36.4-46.3); Red Blood Count 4.54 M/uL (4.70-6.10)
[2024-08-12 04:08] LABS: BUN Creatinine Ratio 11.8 (10-20); Calcium 8.5 mg/dl (8.6-10.3); Chol HDL Ratio 5.6 (0-5); Creatinine Clr Calc Pharmacy 44.5 ml/min; Magnesium 2.2 mg/dl (1.7-2.4); Potassium 4.4 mmol/L (3.5-5.1)
[2024-08-12 04:20] LABS: Troponin I High Sensitivity 5515.4 pg/ml (0-20)
[2024-08-12] MEDS: SODIUM CHLORIDE 0.9% 500 ML IV ONE (07:27)
[2024-08-12] MEDS: PIPERACILLIN/TAZOBACTAM 4.5 GM/100 ML BAG IV STA (07:46)
--- OUTSIDE RECORDS SUMMARY | 2024-08-12 07:57 | External Medical Summary | Continuity of Care Document ---
Author Name Unknown Organization Family Practice [facility], [facility] Address [address] [place] [address] Phone [phone] Care Team Providers Care Cardiac Nurse Practitioner Name Role Phone Yocasta Medina Care Team Information Receiv er [phone] Problems Active Problems Provider Date Allergic rhinitis Brandie Tabares PA-C Onset : 02/11/2017 Essential hypertension Brandie Tabares PA-C Onset: 09/15/2017 Hyperlipidemia Brandie Tabares PA-C Onset: 09/15/2017 Gastro-esophageal reflux dis ease with esophagitis Brandie Tabares PA-C Onset: 09/15/2017 Coronary arteriosclerosis Isabella Pemberton JR Onset: 03/31/2018 History of placement of sten t for coronary artery disease Paul Starkey JR, MD Onset: 03/31/2018 Atherosclerosis of coronary artery without angina pectoris Paul Starkey JR, MD Onset: 03/31/2018 Social History Type Date Description Comments Sex Male Tobacco Use Reviewed: 03/19/24 Never Smoked Cigarette s Smoking Status Reviewed: 03/19/24 Never Smoked Cigaret laura Tobacco Use Reviewed: 07/29/23 Never Smoked Cigars Tobacco Use Reviewed: 07/29/23 Never Smoked A Pipe Smokeless Tobacco 07/29/2023 Never Used Smokeless To bacco ETOH Use 09/15/2017 Denies alcohol use Recreational Drug Use 09/15/2017 Never Used Drugs Allergies and adverse reactions Description No Known Drug Allergies Medications Active Medications SIG Qnty Indications Order ing Provider Date Amoxicillin/Clavula sherrill Jtnfiakdv220-161lm Tablets take one tab two times a day for 10 days 20tabs J32.0 Huong Bai MD 03/19/2024 Rkfjdwbucl47wc Tablets take one tablet orally once a day for five days. 5tabs J32.0 Huong Bai MD 03/19/2024 Pfvdehcethg483bw Capsules take one tab three times a day as needed 30caps J32.0 Huong Bai MD 03/19/2024 Albuterol Sulfate OXS588(90Base) mcg/Act Aerosol take 2 puff as needed for shortness of breath. 8.5Each J32.0 Huong Bai MD 03/19/2024 Gcwfjplwn345-624qk Tablets one tab PO twice a day for 14 days 28tabs J01.80 Huong Bai MD 03/19/2024 Metoprolol Hocemscn79ml Tablets Take One-Half Tablet By Mouth Twice Daily 90tabs I10 Huong Bai MD 02/11/2024 Fast Acting [id number] Tablets Sub 1 by mouth every day 90tabs Huong acosta MD 01/29/2024 Methylprednisolone4 mg TBPK Take By Mouth as Directed Per Package 21units Huong Bai MD 09/22/2023 Egtcmjeodz8mr Tablets Take 1 Tablet By Mouth Once Daily as Needed 90tabs Huong Bai MD 09/10/2023 Btkxzhku54jme/0.5ML Suspension Rec one inj intramuscular 1units Huong Bai MD 01/27/2023 Rgrvureetu38nx Tablets Take 1 Tablet By Mouth Once Daily In The Evening 90tabs Huong Bai MD 11/01/2022 Nitroglycerin0.4mg Tablets Sub Dissolve One Under The Tongue Every Five Minutes Up To Three Dose as Needed For Chest Pain 25tabs Huong Bai MD 11/07/2021 Loratadine-D 56JQ8-523pk Tablets ER 12HR Take One Tablet By Mouth Once Daily For Sinuses 90tabs J30.1 Varinder Renner MD 01/12/2021 Ipratropium Bromide0.06% Solution use 2 sprays in each nostril every 6 hours as needed for runny nose. 45ml Varinder Renner MD 12/16/2019 Rosuvastatin Pvlbnre69tb Tablets Take One Tablet By Mouth Once Daily 90tabs E78.5 Huong Bai MD 04/19/[address] Take One Capsule By Mouth Once Daily 90caps K29.00 Paul Starkey JR, MD 12/29/2017 Jokoqfq87nef/Act Suspension 2 sprays each nostril daily 1units J30.89 Paul Starkey JR, MD 09/15/[address] 1 by mouth every day Unknown /0 000 History Medications Lsxnququos812wh Capsules one capsule two times daily x 5 days 10caps Huong Bai MD 01/29/2024 - 02/03/2024 Medications Administered in Office Medication SIG Qnty Indications Ordering Provider Date Injection Dexamethasone Sodium Phosphate, 1 MGInjection Austyn Carr PA-C 07/04 Injection Kenalog [address] [facility] [id number] Huong Bai MD 1 06/04/2022 Immunizations CPT Code Status Date Vaccine Lot # [id number] Given 01/30/2024 Shingrix [id number] U-FLU Given 03/26/2023 Influenza,Unspecified 371 [id number] 91549 Given 03/26/2023 Influenza Vaccine High Do se 0.5ML Age 65 & > [id number] 98509 Given 04/02/2022 Moderna Sars-Co v-2 (Covid-19) Vaccine, BiValent Booster [id number] U-FLU Given 03/20/2022 Influenza,Unspecified as1 [id number] 33729 Given 03/20/2022 Influenza Virus Vaccine, Quadrivalent (Cciiv4), Derived From Cell [id number] 12269 Given 09/18/2021 Moderna Covid-1 9 Vaccine 50mcg Booster-EMR Doc Only [id number] U-FLU Given 04/20/2021 Influenza,Unspecified 19155 Given 04/20/2021 Influenza Virus Vaccine, Quadrivalent (Cciiv4), Derived From 5 Given 04/06/2021 Moderna Sars-Co v-2 (Cov-19) vacc,100 mcg/ 0.5 mL 12Y+EMR Doc Only [id number] 42712 Given 09/15/2020 Moderna Sars-Co v-2 (Cov-19) vacc,100 mcg/ 0.5 mL 12Y+EMR Doc Only [id number] 66811 Given 08/18/2020 Moderna Sars-Co v-2 (Cov-19) vacc,100 mcg/ 0.5 mL 12Y+EMR Doc Only [id number] 15524 Given 05/21/2019 Pneumococcal Vaccine/Pneu movax 23 [id number] 67723 Given 01/19/2019 Shingrix 45538 Given 09/01/2018 Pneumococcal Conjugate-Pr evnar 13 [id number] 71343 Given 10/05/2016 Pneumococcal Conjugate-Pr evnar 13 Vital Signs Date Vital Result Comment 03/19/2024 2:12pm BP Systolic 136 mmHg BP Diastolic 82 mmHg Body Temperature 97.7 F Heart Rate 64 /min Respiratory Rate 22 /min Weight 203.12 lb Weight 92.138 kg Height 69 inches 5'9" BMI (Body Mass Index) 30.0 kg/m2 O2 % BldC Oximetry 94 % [place] Body Weight 160 lb 01/29/2024 7:54am BP Systolic 148 mmHg BP Diastolic 88 mmHg BP Systolic Recheck 134 mmHg BP Diastolic Recheck 80 mmHg Body Temperature 96.9 F Heart Rate 83 /min Respiratory Rate 20 /min Weight 202.12 lb Weight 91.684 kg Height 69 inches 5'9" BMI (Body Mass Index) 29.8 kg/m2 O2 % BldC Oximetry 96 % [place] Body Weight 160 lb Results Test Acquired Date Facility Test Result H/L Range Note Laboratory test finding 03/19/2024 [facility] (In Office Test) Sars Antigen - In Office negative CBC W/Diff 01/22/2024 [facility]. [address] [place] [address] [phone] WBC 6.4 10^3/M3 3.1-9.2 RBC 4.49 10^6/M3 4.00-5.80 HGB 13.9 GR/DL 12.5-17.5 HCT 41.3 % 37.5-52.5 MCV 92.0 CUMICR 82.6-95.8 MCH 30.9 PICOGR 27.9-32.9 MCHC 33.6 % 32.6-35.4 RDW 14.9 % High 11.4-14.6 PLT 190 10^3/M3 140-350 MPV 8.4 CUMICR 7.0-10.6 %Neut 61.3 % 40.0-75.0 %Lymph 24.9 % 17.0-45.0 %Hendricks 10.6 % 1.0-11.0 %Eos 2.7 % 0.0-6.0 %Baso 0.5 % 0.0-2.0 #Neut 3.9 10^3/M3 1.5-8.0 #Lymph 1.6 10^3/M3 0.8-3.2 #Hendricks 0.7 10^3/M3 0.0-0.8 #Eos 0.2 10^3/m3 0.0-0.4 #Baso 0.0 10^3/m3 0.0-0.2 Comp. Met 01/22/2024 [facility]. [address] [place] [address] Glucose 107 mg/dL 70-110 BUN 15 mg/dL 6-25 Creatinine 1.3 mg/dL 0.7-1.3 Sodium 141 mEq/L 135-145 Potassium 3.9 mEq/L 3.5-5.0 Chloride 104 mEq/L 95-107 Co-2 28 mEq/L 24-31 Alk Phos 72 IU/L 43-122 Alt(SGPT) 17 IU/L 10-40 Ast(Sgot) 20 IU/L 3-42 T.Bilirubin 0.3 mg/dL 0.1-1.3 Calcium 9.2 mg/dL 8.5-10.6 Tot.Protein 6.1 g/dL 5.8-8.0 Albumin 4.2 g/dL 3.0-5.2 Globulin 1.9 g/dL Low 2.0-3.4 GFR 56 ML/MIN/1.73 SQM Low >60 Lipid 01/22/2024 [facility]. [address] [place] [address] Cholesterol 231 mg/dL High 0-200 1 Triglyceride 351 mg/dL High 0-150 2 HDLD 40 mg/dL See Comment 3 Measured LDL 173 mg/dL High 0-130 4 Calc VLDL 70.2 mg/dL See Comment 5 Chol/HDL 5.8 RATIO See Comment 6 Non-HDL 191 mg/dL See Comment 7 Laboratory test finding 01/22/2024 [facility]. [address] [place] [address] [phone] TSH 1.17 uIU/mL 0.50-6.00 Psa2 1.1 ng/mL 0.0-4.0 Hba1c 01/22/2024 [facility]. [address] [place] [address] A1c 5.80 % 4.70-6.50 8 Laboratory test finding 12/15/2023 [facility]. [address] [place] [address] [phone] BNP 90.0 pg/mL 0.0-100.0 CBC No Diff 12/15/2023 [facility]. [address] [place] [address] [phone] WBC 7.2 10^3/M3 3.1-9.2 RBC 4.84 10^6/M3 4.00-5.80 HGB 14.1 GR/DL 12.5-17.5 HCT 44.8 % 37.5-52.5 MCV 92.7 CUMICR 82.6-95.8 MCH 29.3 PICOGR 27.9-32.9 MCHC 31.6 % Low 32.6-35.4 RDW 16.2 % High 11.4-14.6 PLT 212 10^3/M3 140-350 MPV 8.3 CUMICR 7.0-10.6 Manual Diff 12/15/2023 [facility]. [address] [place] [address] [phone] Seg 75 45-75 Lymph 18 Low 20-45 Hendricks 6 0-10 Eosin 1 0-6 Baso 0 0-2 RBC Morphology NORMAL 1 CHOLESTEROL Less than 200mg/dl Low risk 201-239 mg/dl Borderline risk Equal to or greater 240mg/dl High risk 2 TRIGLYCERIDES Less than 150mg/dl Normal 150-199mg/dl Borderline 200-499mg/dl High Greater than 500mg/dl Very High 3 HDL <40mg/dl Elevated Risk 41-59mg/dl Risk >=60mg/dl Least Risk 4 LDL <100mg/dl Optimal 100-129mg/dl Near Optimal 130-159mg/dl Borderline High 160-189mg/dl High >=190 Very High 5 VLDL Less than 30mg/dl Normal 6 CHOL/HDL <4.0 Optimal 4.0-5.0 Borderline >6.0 High Risk 7 NON-HDL 30mg/dl higher than LDL Target 8 MEAN GLUCOSE IN mg/d L/A1c% POOR CONTROL FAIR CONTROL GOOD CONTROL EXCELLENT CONTROL 360-14 210-9 180-8 120-6 330-13 150-7 90-5 300-12 270-11 240-10 Procedures Date Code Description Status 01/29/2024 G2211 Continuation of care e/m vis it add on Completed 01/29/2024 3079F PVRP Diastolic BP 80-89 MMHG Completed 01/29/2024 3075F PVRP Systolic BP 130 To 139 MMHG Completed 01/22/2024 57304 Venipuncture Routine Complet ed 12/15/2023 40942 Remove Impact Cerumen Irriga tion Completed 12/15/2023 87237 Venipuncture Routine Complet ed Medical Devices Description No Information Available Encounters Type Date Location Provider Dx Diagnosis Office Visit 03/19/2024 2:15p Rupert Bai MD J32.0 Chronic maxillary sinusitis J20.9 Acute bronchitis, un specified Office Visit 01/29/2024 8:00a Rupert macias PA-C I10 Essential (primary) hypertension E78.2 Mixed hyperlipidemia N18.30 Chronic kidney disea se, stage 3 unspecified J32.0 Chronic maxillary si nusitis L03.113 Cellulitis of right upper limb Assessments Date Code Description Provider 04/01/2024 E78.2 Mixed hyperlipidemia Austyn Carr PA-C 04/01/2024 N40.1 Benign prostatic hyperplasia with lower urinary tract symptoms Austyn Carr PA-C 03/19/2024 J32.0 Chronic maxillary sinusitis Huong Bai MD 03/19/2024 J20.9 Acute bronchitis, unspecifie d Huong Bai MD 03/01/2024 I10 Essential (primary) hyperten hank Bai MD 03/01/2024 E78.2 Mixed hyperlipidemia Huong Bai MD 03/01/2024 N18.3 Chronic kidney disease, stag e 3 (moderate) Huong Bai MD 01/31/2024 I10 Essential (primary) hyperten hank Brown Bruno, PA-C 01/31/2024 E78.2 Mixed hyperlipidemia Austyn MccoySj Carr, PA-C 01/31/2024 J32.0 Chronic maxillary sinusitis Austyn Brown Bruno, PA-C 01/29/2024 I10 Essential (primary) hyperten hank Brown Bruno, PA-C 01/29/2024 E78.2 Mixed hyperlipidemia Austyn MccoySj Carr, PA-C 01/29/2024 N18.30 Chronic kidney d isease, stage 3 unspecified Austyn MccoySj Carr, PA-C 01/29/2024 J32.0 Chronic maxillary sinusitis Austyn MccoySj Carr, PA-C 01/29/2024 L03.113 Cellulitis of right upper li mb Austyntimmy Carr, PA-C 01/22/2024 I10 Essential (primary) hyperten hank Huong Bai MD 01/22/2024 I10 Essential (primary) hyperten hank Lab - [place] 01/22/2024 E78.2 Mixed hyperlipidemia Huong Bai MD 01/22/2024 E78.2 Mixed hyperlipidemia Lab - [place] 01/22/2024 N18.3 Chronic kidney disease, stag e 3 (moderate) Huong Bai MD 01/22/2024 N18.3 Chronic kidney disease, stag e 3 (moderate) Lab - [place] 01/22/2024 N40.1 Benign prostatic hyperplasia with lower urinary tract symptoms Huong Bai MD 01/22/2024 N40.1 Benign prostatic hyperplasia with lower urinary tract symptoms Lab - [place] 01/22/2024 R73.01 Impaired fasting glucose Bismark Bai MD 01/22/2024 R73.01 Impaired fasting glucose Lab - [place] 12/15/2023 H61.23 Impacted cerumen, bilateral Huong Bai MD 12/15/2023 H61.23 Impacted cerumen, bilateral Lab - [place] 12/15/2023 R06.02 Shortness of breath Huong Bai MD 12/15/2023 R06.02 Shortness of breath [facility] [place] Plan of Treatment 03/19/2024 - Huong Bai MD* J32.0 Chronic maxillary sinusitis* New Medication:* Amoxicillin/Clavulanate Potassium 875-125 mg - take one tab two times a day for 10 days * Prednisone 20 mg - take one tablet orally once a day for five days. * Benzonatate 100 mg - take one tab three times a day as needed * Albuterol Sulfate HFA 108(90 Base) mcg/Act - take 2 puff as needed for shortness of breath. * Comments:* will start her on abx along with short course of Prednisone and symptomatic management * J20.9 Acute bronchitis, unspecified* Recommendations:* Symptomatic care. Call if worsening or no improvement. Functional Status Description No Information Available Mental Status Description No Information Available Referrals Description No Information Available
--- OUTSIDE RECORDS SUMMARY | 2024-08-12 07:57 | External Medical Summary | Continuity of Care Document ---
Author Name Unknown Organization Family Practice [facility] Address [address] [place] [address] Phone [phone] Care Team Providers Care Seed Sales Manager Name Role Phone Yocasta Medina Care Team Information Receiv er [phone] Problems Active Problems Provider Date Allergic rhinitis Brandie Tabares PA-C Onset : 02/11/2017 Essential hypertension Brandie Tabares PA-C Onset: 09/15/2017 Hyperlipidemia Brandie Tabares PA-C Onset: 09/15/2017 Gastro-esophageal reflux dis ease with esophagitis Brandei Tabares PA-C Onset: 09/15/2017 Coronary arteriosclerosis Isabella [...] Indications Order ing Provider Date Amoxicillin/Clavula sherrill Kfdcmthhp179-894rr Tablets take one tab two times a day for 10 days 20tabs J32.0 Huong Bai MD 03/19/2024 Zbugzuxrnq77es Tablets take one tablet orally once a day for five days. 5tabs J32.0 Huong Bai MD 03/19/2024 Pxyxkgohrqx870ew Capsules take one tab three times a day as needed 30caps J32.0 Huong Bai MD 03/19/2024 Albuterol Sulfate QKI398(90Base) mcg/Act Aerosol take 2 puff as needed for shortness of breath. 8.5Each J32.0 Huong Bai MD 03/19/2024 Pifckssrf586-480dc Tablets one tab PO twice a day for 14 days 28tabs J01.80 Huong Bai MD 03/19/2024 Metoprolol Dqepgfin40ee Tablets Take One-Half Tablet By Mouth Twice Daily 90tabs I10 Huong Bai MD 02/11/2024 Fast Acting K891699jjz Tablets Sub 1 by mouth every day 90tabs Huong acosta MD 01/29/2024 Methylprednisolone4 mg TBPK Take By Mouth as Directed Per Package 21units Huong Bai MD 09/22/2023 Dxixpdokxa1gf Tablets Take 1 Tablet By Mouth Once Daily as Needed 90tabs Huong Bai MD 09/10/2023 Snbycdgj13frn/0.5ML Suspension Rec one inj intramuscular 1units Huong Bai MD 01/27/2023 Gkoxbnuifw77yw Tablets Take 1 Tablet By Mouth Once Daily In The Evening 90tabs Huong Bai MD 11/01/2022 Nitroglycerin0.4mg Tablets Sub Dissolve One Under The Tongue Every Five Minutes Up To Three Dose as Needed For Chest Pain 25tabs Huong Bai MD 11/07/2021 Loratadine-D 63UZ8-418le Tablets ER 12HR Take One Tablet By Mouth Once Daily For Sinuses 90tabs J30.1 Varinder Renner MD 01/12/2021 Ipratropium Bromide0.06% Solution use 2 sprays in each nostril every 6 hours as needed for runny nose. 45ml Varinder Renner MD 12/16/2019 Rosuvastatin Dtbwuny31ew Tablets Take One Tablet By Mouth Once Daily 90tabs E78.5 Huong Bai MD 04/19/[address] Take One Capsule By Mouth Once Daily 90caps K29.00 Paul Starkey JR, MD 12/29/2017 Jhyfsll10ksp/Act Suspension 2 sprays each nostril daily 1units J30.89 Paul Starkey JR, MD 09/15/[address] 1 by mouth every day Unknown /0 000 History Medications Abavyrrzbe349we Capsules one capsule two times daily x 5 days 10caps Huong Bai MD 01/29/2024 - 02/03/2024 Medications Administered in Office Medication SIG Qnty Indications Ordering Provider Date Injection Dexamethasone Sodium Phosphate, 1 MGInjection Austyn Carr PA-C 07/04 Injection Kenalog 10 MG [facility] [id number] Huong Bai MD 1 06/04/2022 Immunizations CPT Code Status Date Vaccine Lot # 70785 Given 01/30/2024 Shingrix [id number] U-FLU Given 03/26/2023 Influenza,Unspecified 371 600 45275 Given 03/26/2023 Influenza Vaccine High Do se 0.5ML Age 65 & > [id number] 18628 Given 04/02/2022 Moderna Sars-Co v-2 (Covid-19) Vaccine, BiValent Booster 12y+ [id number] U-FLU Given 03/20/2022 Influenza,Unspecified as1 594b 79086 Given 03/20/2022 Influenza Virus Vaccine, Quadrivalent (Cciiv4), Derived From Cell [id number] 91553 Given 09/18/2021 Moderna Covid-1 9 Vaccine 50mcg Booster-EMR Doc Only [id number] U-FLU Given 04/20/2021 Influenza,Unspecified 47291 Given 04/20/2021 Influenza Virus Vaccine, Quadrivalent (Cciiv4), Derived From 8 Given 04/06/2021 Moderna Sars-Co v-2 (Cov-19) vacc,100 mcg/ 0.5 mL 12Y+EMR Doc Only [id number] 73447 Given 09/15/2020 Moderna Sars-Co v-2 (Cov-19) vacc,100 mcg/ 0.5 mL 12Y+EMR Doc Only [id number] 81623 Given 08/18/2020 Moderna Sars-Co v-2 (Cov-19) vacc,100 mcg/ 0.5 mL 12Y+EMR Doc Only [id number] 66545 Given 05/21/2019 Pneumococcal Vaccine/Pneu movax 23 [id number] 83333 Given 01/19/2019 Shingrix 19179 Given 09/01/2018 Pneumococcal Conjugate-Pr evnar 13 [id number] 50355 Given 10/05/2016 Pneumococcal Conjugate-Pr evnar 13 Vital Signs Date Vital Result Comment 03/19/2024 2:12pm BP Systolic 136 mmHg BP Diastolic 82 mmHg Body Temperature 97.7 F Heart Rate 64 /min Respiratory Rate 22 /min Weight 203.12 lb Weight 92.138 kg Height 69 inches 5'9" BMI (Body Mass Index) 30.0 kg/m2 O2 % BldC Oximetry 94 % [place] Body Weight 160 lb 01/29/2024 7:54am BP Systolic 148 mmHg BP Diastolic 88 mmHg BP Systolic Recheck 134 mmHg BP Diastolic Recheck 80 mmHg Body Temperature 96.9 F Heart Rate 83 /min Respiratory Rate 20 /min Weight 202.12 lb Weight 91.684 kg Height 69 inches 5'9" BMI (Body Mass Index) 29.8 kg/m2 O2 % BldC Oximetry 96 % [place] Body Weight 160 lb Results Test Acquired Date Facility Test Result H/L Range Note Laboratory test finding 03/19/2024 [facility] (In Office Test) Sars Antigen - In Office negative CBC W/Diff 01/22/2024 [facility]. [address] [place] [address] WBC 6.4 10^3/M3 3.1-9.2 RBC 4.49 10^6/M3 4.00-5.80 HGB 13.9 GR/DL 12.5-17.5 HCT 41.3 % 37.5-52.5 MCV 92.0 CUMICR 82.6-95.8 MCH 30.9 PICOGR 27.9-32.9 MCHC 33.6 % 32.6-35.4 RDW 14.9 % High 11.4-14.6 PLT 190 10^3/M3 140-350 MPV 8.4 CUMICR 7.0-10.6 %Neut 61.3 % 40.0-75.0 %Lymph 24.9 % 17.0-45.0 %Callahan 10.6 % 1.0-11.0 %Eos 2.7 % 0.0-6.0 %Baso 0.5 % 0.0-2.0 #Neut 3.9 10^3/M3 1.5-8.0 #Lymph 1.6 10^3/M3 0.8-3.2 #Callahan 0.7 10^3/M3 0.0-0.8 #Eos 0.2 10^3/m3 0.0-0.4 #Baso 0.0 10^3/m3 0.0-0.2 Comp. Met 01/22/2024 [facility]. [address] [place] [address] Glucose 107 mg/dL 70-110 BUN 15 mg/dL [...] 56 ML/MIN/1.73 SQM Low >60 Lipid 01/22/2024 [facility]. [address] [place] [address] Cholesterol 231 mg/dL High 0-200 1 Triglyceride 351 mg/dL High 0-150 2 HDLD 40 mg/dL See Comment 3 Measured LDL 173 mg/dL High 0-130 4 Calc VLDL 70.2 mg/dL See Comment 5 Chol/HDL 5.8 RATIO See Comment 6 Non-HDL 191 mg/dL See Comment 7 Laboratory test finding 01/22/2024 [facility]. [address] [place] [address] [phone] TSH 1.17 uIU/mL 0.50-6.00 Psa2 1.1 ng/mL 0.0-4.0 Hba1c 01/22/2024 [facility]. [address] [place] [address] [phone] A1c 5.80 % 4.70-6.50 8 Laboratory test finding 12/15/2023 [facility]. [address] [place] [address] [phone] BNP 90.0 pg/mL 0.0-100.0 CBC No Diff 12/15/2023 [facility]. [address] [place] [address] [phone] WBC 7.2 10^3/M3 3.1-9.2 RBC 4.84 10^6/M3 4.00-5.80 HGB 14.1 GR/DL 12.5-17.5 HCT 44.8 % 37.5-52.5 MCV 92.7 CUMICR 82.6-95.8 MCH 29.3 PICOGR 27.9-32.9 MCHC 31.6 % Low 32.6-35.4 RDW 16.2 % High 11.4-14.6 PLT 212 10^3/M3 140-350 MPV 8.3 CUMICR 7.0-10.6 Manual Diff 12/15/2023 [facility]. [address] [place] [address] Seg 75 45-75 Lymph 18 Low 20-45 Callahan 6 0-10 Eosin 1 0-6 Baso 0 [...] BP 130 To 139 MMHG Completed 01/22/2024 54008 Venipuncture Routine Complet ed 12/15/2023 16284 Remove Impact Cerumen Irriga tion Completed 12/15/2023 16917 Venipuncture Routine Complet ed Medical Devices Description [...] upper limb Assessments Date Code Description Provider 03/19/2024 J32.0 Chronic maxillary sinusitis Huong Bai MD 03/19/2024 J20.9 Acute bronchitis, unspecifie d Huong Bai MD 03/01/2024 I10 Essential (primary) hyperten hank Huong Bai MD 03/01/2024 E78.2 Mixed hyperlipidemia Huong Bai MD 03/01/2024 N18.3 Chronic kidney disease, stag e 3 (moderate) Huong Bai MD 01/31/2024 I10 Essential (primary) hyperten hank Carr PA-C 01/31/2024 E78.2 Mixed hyperlipidemia Austyn Carr PA-C 01/31/2024 J32.0 Chronic maxillary sinusitis AustynELSI ChowdhuryC 01/29/2024 I10 Essential (primary) hyperten hank GarciaELSI ChowdhruyC 01/29/2024 E78.2 Mixed hyperlipidemia Austyntimmy Carr, ELSIC 01/29/2024 N18.30 Chronic kidney d isease, stage 3 unspecified ELSI FerrerC 01/29/2024 J32.0 Chronic maxillary sinusitis Austyn Carr, ABEL-C 01/29/2024 L03.113 Cellulitis of right upper li mb ELSI FerrerC 01/22/2024 I10 Essential (primary) hyperten hank Huong Bai MD 01/22/2024 I10 Essential (primary) hyperten hank Lab - [place] 01/22/2024 E78.2 Mixed hyperlipidemia Huong Bai MD 01/22/2024 E78.2 Mixed hyperlipidemia Lab - [place] 01/22/2024 N18.3 Chronic kidney disease, stag e 3 (moderate) Huong Bai MD 01/22/2024 N18.3 Chronic kidney disease, stag e 3 (moderate) Lab - [place] 01/22/2024 N40.1 Benign prostatic hyperplasia with lower urinary tract symptoms Huong Bai MD 01/22/2024 N40.1 Benign prostatic hyperplasia with lower urinary tract symptoms Lab - [place] 01/22/2024 R73.01 Impaired fasting glucose Bismark Bai MD 01/22/2024 R73.01 Impaired fasting glucose Lab - [place] 12/15/2023 H61.23 Impacted cerumen, bilateral Huong Bai MD 12/15/2023 H61.23 Impacted cerumen, bilateral Lab - [place] 12/15/2023 R06.02 Shortness of breath Huong Bai MD 12/15/2023 R06.02 Shortness of breath Lab - [place] 11/30/2023 I10 Essential (primary) hyperten hank ELSI FerrerC 11/30/2023 E78.2 Mixed hyperlipidemia Austyn Carr PA-C 11/30/2023 N40.1 Benign prostatic hyperplasia with lower urinary tract symptoms Austyn Carr PA-C 10/31/2023 I10 Essential (primary) hyperten hank Austyn Carr PA-C 10/31/2023 E78.2 Mixed hyperlipidemia Austyn Carr PA-C Plan of Treatment 03/19/2024 - Huong Bai [...] Mental Status Description No Information Available Referrals Refer to Reason for Referral Status Appt Jeronimo e Created
--- OUTSIDE RECORDS SUMMARY | 2024-08-12 07:58 | External Medical Summary | Continuity of Care Document ---
Author Name Unknown Organization [facility] Address [address] [place] [address] Phone [phone] Care Team Providers Care Hydrometeorology Teacher Name Role Phone Yocasta Medina Care Team Information Receiv er [phone] Problems Active Problems Provider Date Allergic rhinitis [...] Indications Order ing Provider Date Amoxicillin/Clavula sherrill Drrphccet649-494hk Tablets take one tab two times a day for 10 days 20tabs J32.0 Huong Bai MD 03/19/2024 Sqmbvnssmg47ym Tablets take one tablet orally once a day for five days. 5tabs J32.0 Huong Bai MD 03/19/2024 Qpjgutozzco143to Capsules take one tab three times a day as needed 30caps J32.0 Huong Bai MD 03/19/2024 Albuterol Sulfate RUM126(90Base) mcg/Act Aerosol take 2 puff as needed for shortness of breath. 8.5Each J32.0 Huong Bai MD 03/19/2024 Aslsthkzi855-586bi Tablets one tab PO twice a day for 14 days 28tabs J01.80 Huong Bai MD 03/19/2024 Metoprolol Exeuxjlw49ew Tablets Take One-Half Tablet By Mouth Twice Daily 90tabs I10 Huong Bai MD 02/11/2024 Fast Acting J258791hkt Tablets Sub 1 by mouth every day 90tabs Huong acosta MD 01/29/2024 Methylprednisolone4 mg TBPK Take By Mouth as Directed Per Package 21units Huong Bai MD 09/22/2023 Yamxdalcdd7sh Tablets Take 1 Tablet By Mouth Once Daily as Needed 90tabs Huong Bai MD 09/10/2023 Tvpqdrvs73jgc/0.5ML Suspension Rec one inj intramuscular 1units Huong Bai MD 01/27/2023 Kzafimjvue40pi Tablets Take 1 Tablet By Mouth Once Daily In The Evening 90tabs Huong Bai MD 11/01/2022 Nitroglycerin0.4mg Tablets Sub Dissolve One Under The Tongue Every Five Minutes Up To Three Dose as Needed For Chest Pain 25tabs Huong Bai MD 11/07/2021 Loratadine-D 81CL0-035wk Tablets ER 12HR Take One Tablet By Mouth Once Daily For Sinuses 90tabs J30.1 Varinder Renner MD 01/12/2021 Ipratropium Bromide0.06% Solution use 2 sprays in each nostril every 6 hours as needed for runny nose. 45ml Varinder Renner MD 12/16/2019 Rosuvastatin Nhshrjy74as Tablets Take One Tablet By Mouth Once Daily 90tabs E78.5 Huong Bai MD 04/19/[address] Take One Capsule By Mouth Once Daily 90caps K29.00 Paul Starkey JR, MD 12/29/2017 Sugnxnk99crs/Act Suspension 2 sprays each nostril daily 1units J30.89 Paul Starkey JR, MD 09/15/[address] 1 by mouth every day Unknown 00/0 000 History Medications Tohekvoopx307yn Capsules one capsule two times daily x 5 days 10caps Huong Bai MD 01/29/2024 - 02/03/2024 Medications Administered in Office Medication SIG Qnty Indications Ordering Provider Date Injection Dexamethasone Sodium Phosphate, 1 MGInjection Austyn Carr PA-C 07/04 Injection Kenalog 10 MG [facility] [id number] Huong Bai MD 1 06/04/2022 Immunizations CPT Code Status Date Vaccine Lot # [id number] Given 01/30/2024 Shingrix [id number] U-FLU Given 03/26/2023 Influenza,Unspecified [id number] [id number] Given 03/26/2023 Influenza Vaccine High Do se 0.5ML Age 65 & > [id number] 95737 Given 04/02/2022 Moderna Sars-Co v-2 (Covid-19) Vaccine, BiValent Booster [id number] U-FLU Given 03/20/2022 Influenza,Unspecified as1 594b 50080 Given 03/20/2022 Influenza Virus Vaccine, Quadrivalent (Cciiv4), Derived From Cell [id number] 15114 Given 09/18/2021 Moderna Covid-1 9 Vaccine 50mcg Booster-EMR Doc Only [id number] U-FLU Given 04/20/2021 Influenza,Unspecified 37376 Given 04/20/2021 Influenza Virus Vaccine, Quadrivalent (Cciiv4), Derived From 0 Given 04/06/2021 Moderna Sars-Co v-2 (Cov-19) vacc,100 mcg/ 0.5 mL 12Y+EMR Doc Only [id number] 33840 Given 09/15/2020 Moderna Sars-Co v-2 (Cov-19) vacc,100 mcg/ 0.5 mL 12Y+EMR Doc Only [id number] 05462 Given 08/18/2020 Moderna Sars-Co v-2 (Cov-19) vacc,100 mcg/ 0.5 mL 12Y+EMR Doc Only [id number] 15916 Given 05/21/2019 Pneumococcal Vaccine/Pneu movax 23 [id number] 14047 Given 01/19/2019 Shingrix 95809 Given 09/01/2018 Pneumococcal Conjugate-Pr evnar 13 [id number] 70600 Given 10/05/2016 Pneumococcal Conjugate-Pr evnar 13 Vital Signs Date Vital Result Comment 03/19/2024 2:12pm BP Systolic 136 mmHg BP Diastolic 82 mmHg Body Temperature 97.7 F Heart Rate 64 /min Respiratory Rate 22 /min Weight 203.12 lb Weight 92.138 kg Height 69 inches 5'9" BMI (Body Mass Index) 30.0 kg/m2 O2 % BldC Oximetry 94 % [place] Body Weight 160 lb 01/29/2024 7:54am BP Systolic 148 mmHg BP Diastolic 88 mmHg BP Systolic Recheck 134 mmHg BP Diastolic Recheck 80 mmHg Body Temperature 96.9 F Heart Rate 83 /min Respiratory Rate 20 /min Weight 202.12 lb Weight 91.684 kg Height 69 inches 5'9" BMI (Body Mass Index) 29.8 kg/m2 O2 % BldC Oximetry 96 % [place] Body Weight 160 lb Results Test Acquired Date Facility Test Result H/L Range Note Laboratory test finding 03/19/2024 [facility] (In Office Test) Sars Antigen - In Office negative CBC W/Diff 01/22/2024 [facility] [address] [place] [address] [phone] WBC 6.4 10^3/M3 3.1-9.2 RBC 4.49 10^6/M3 4.00-5.80 HGB 13.9 GR/DL 12.5-17.5 HCT 41.3 % 37.5-52.5 MCV 92.0 CUMICR 82.6-95.8 MCH 30.9 PICOGR 27.9-32.9 MCHC 33.6 % 32.6-35.4 RDW 14.9 % High 11.4-14.6 PLT 190 10^3/M3 140-350 MPV 8.4 CUMICR 7.0-10.6 %Neut 61.3 % 40.0-75.0 %Lymph 24.9 % 17.0-45.0 %[place] 10.6 % 1.0-11.0 %Eos 2.7 % 0.0-6.0 %Baso 0.5 % 0.0-2.0 #Neut 3.9 10^3/M3 1.5-8.0 #Lymph 1.6 10^3/M3 0.8-3.2 #[place] 0.7 10^3/M3 0.0-0.8 #Eos 0.2 10^3/m3 0.0-0.4 #Baso 0.0 10^3/m3 0.0-0.2 Comp. Met 01/22/2024 [facility] [address] [place] [address] Glucose 107 mg/dL 70-110 BUN 15 mg/dL [...] 56 ML/MIN/1.73 SQM Low >60 Lipid 01/22/2024 [facility] [address] [place] [address] [phone] Cholesterol 231 mg/dL High 0-200 1 Triglyceride 351 mg/dL High 0-150 2 HDLD 40 mg/dL See Comment 3 Measured LDL 173 mg/dL High 0-130 4 Calc VLDL 70.2 mg/dL See Comment 5 Chol/HDL 5.8 RATIO See Comment 6 Non-HDL 191 mg/dL See Comment 7 Laboratory test finding 01/22/2024 [facility] [address] [place] [address] [phone] TSH 1.17 uIU/mL 0.50-6.00 Psa2 1.1 ng/mL 0.0-4.0 Hba1c 01/22/2024 [facility] [address] [place] [address] A1c 5.80 % 4.70-6.50 8 Laboratory test finding 12/15/2023 [facility] [address] [place] [address] [phone] BNP 90.0 pg/mL 0.0-100.0 CBC No Diff 12/15/2023 [facility] [address] [place] [address] [phone] WBC 7.2 10^3/M3 3.1-9.2 RBC 4.84 10^6/M3 4.00-5.80 HGB 14.1 GR/DL 12.5-17.5 HCT 44.8 % 37.5-52.5 MCV 92.7 CUMICR 82.6-95.8 MCH 29.3 PICOGR 27.9-32.9 MCHC 31.6 % Low 32.6-35.4 RDW 16.2 % High 11.4-14.6 PLT 212 10^3/M3 140-350 MPV 8.3 CUMICR 7.0-10.6 Manual Diff 12/15/2023 [facility] [address] [place] [address] Seg 75 45-75 Lymph 18 Low 20-45 [place] 6 0-10 Eosin 1 0-6 Baso 0 [...] BP 130 To 139 MMHG Completed 01/22/2024 31128 Venipuncture Routine Complet ed 12/15/2023 34715 Remove Impact Cerumen Irriga tion Completed 12/15/2023 58202 Venipuncture Routine Complet ed Medical Devices Description No Information Available Encounters Type Date Location Provider Dx Diagnosis Office Visit 01/29/2024 8:00a Rupert Carr PA-C I10 Essential (primary) hypertension E78.2 Mixed hyperlipidemia N18.30 Chronic kidney disea se, stage 3 unspecified J32.0 Chronic maxillary si nusitis L03.113 Cellulitis of right upper limb Assessments Date Code Description Provider 03/19/2024 J32.0 Chronic maxillary sinusitis Huong Bai MD 03/19/2024 J20.9 Acute bronchitis, unspecifie d Huong Bai MD 01/31/2024 I10 Essential (primary) hyperten hank Austyn Carr PA-C 01/31/2024 E78.2 Mixed hyperlipidemia Austyn Carr PA-C 01/31/2024 J32.0 Chronic maxillary sinusitis Austyn Carr PA-C 01/29/2024 I10 Essential (primary) hyperten hank Carr PA-C 01/29/2024 E78.2 Mixed hyperlipidemia Austyn Carr PA-C 01/29/2024 N18.30 Chronic kidney d isease, stage 3 unspecified Austyn Carr PA-C 01/29/2024 J32.0 Chronic maxillary sinusitis ELSI FerrerC 01/29/2024 L03.113 Cellulitis of right upper li domingo Carr PA-C 01/22/2024 I10 Essential (primary) hyperten hank Huong Bai MD 01/22/2024 I10 Essential (primary) hyperten hank Lab - [facility] 01/22/2024 E78.2 Mixed hyperlipidemia Huong Bai MD 01/22/2024 E78.2 Mixed hyperlipidemia Lab - [place] 01/22/2024 N18.3 Chronic kidney disease, stag e 3 (moderate) Huong Bai MD 01/22/2024 N18.3 Chronic kidney disease, stag e 3 (moderate) Lab - [facility] 01/22/2024 N40.1 Benign prostatic hyperplasia with lower urinary tract symptoms Huong Bai MD 01/22/2024 N40.1 Benign prostatic hyperplasia with lower urinary tract symptoms Lab - [facility] 01/22/2024 R73.01 Impaired fasting glucose Bismark Bai MD 01/22/2024 R73.01 Impaired fasting glucose Lab - [facility] 12/15/2023 H61.23 Impacted cerumen, bilateral Huong Bai MD 12/15/2023 H61.23 Impacted cerumen, bilateral Lab - [facility] 12/15/2023 R06.02 Shortness of breath Huong Bai MD 12/15/2023 R06.02 Shortness of breath [facility] [place] 11/30/2023 I10 Essential (primary) hyperten hank ELSI [facility]rer[facility] 11/30/2023 E78.2 Mixed hyperlipidemia [facility] Ferrer[facility] 11/30/2023 N40.1 Benign prostatic hyperplasia with lower urinary tract symptoms Austyn Carr PA-C 10/31/2023 I10 Essential (primary) hyperten hankELSI NiceC 10/31/2023 E78.2 Mixed hyperlipidemia [facility] 09/30/2023 I10 Essential (primary) hyperten hank Austyn Carr PA-C 09/30/2023 E78.2 Mixed hyperlipidemia Austyn Carr PA-C Plan of Treatment Future Appointment(s):* 08/02/2024 9:00 am - Austyn Carr PA-C at [facility] * 07/26/2024 8:00 am - [facility] 03/19/2024 - Huong Bai MD* J32.0 Chronic [...] as needed for shortness of breath. * J20.9 Acute bronchitis, unspecified* Recommendations:* Symptomatic care. Call if worsening or no improvement. Functional Status Description No Information Available Mental Status Description No Information Available Referrals Refer to Reason for Referral Status Appt Jeronimo e Created [facility] Closed 10/10/2023 0 [facility] [address] [place] [id number] [phone]
--- OUTSIDE RECORDS SUMMARY | 2024-08-12 07:58 | External Medical Summary | Continuity of Care Document ---
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 Name Role Phone Yocasta Medina Care Team Information Receiv er [phone] Problems Active Problems Provider Date Allergic rhinitis [...] Description Comments Sex Male Tobacco Use Reviewed: 01/29/24 Never Smoked Cigarette s Smoking Status Reviewed: 01/29/24 Never Smoked Cigaret laura Tobacco Use Reviewed: 07/29/23 Never Smoked Cigars Tobacco Use Reviewed: 07/29/23 Never Smoked A Pipe Smokeless Tobacco 07/29/2023 Never Used Smokeless To bacco ETOH Use 09/15/2017 Denies alcohol use Recreational Drug Use 09/15/2017 Never Used Drugs Allergies and adverse reactions Description No Known Drug Allergies Medications Active Medications SIG Qnty Indications Order ing Provider Date Metoprolol Arzhfiwy12id Tablets Take One-Half Tablet By Mouth Twice Daily 90tabs I10 Huong Bai MD 02/11/2024 Fast Acting [id number] Tablets Sub 1 by mouth every day 90tabs Huong acosta MD 01/29/2024 Methylprednisolone4 mg TBPK Take By Mouth as Directed Per Package 21lux Bai MD 09/22/2023 Zxuuksdgbk8ty Tablets Take 1 Tablet By Mouth Once Daily as Needed 90tabs Huong Bai MD 09/10/2023 Aadbfqbb82yfz/0.5ML Suspension Rec one inj intramuscular 1units Huong Bai MD 01/27/2023 Ageyhbxzuw18nx Tablets Take 1 Tablet By Mouth Once Daily In The Evening 90tabs Huong Bai MD 11/01/2022 Nitroglycerin0.4mg Tablets Sub Dissolve One Under The Tongue Every Five Minutes Up To Three Dose as Needed For Chest Pain 25tabs Huong Bai MD 11/07/2021 Loratadine-D 15ZW9-052qf Tablets ER 12HR Take One Tablet By Mouth Once Daily For Sinuses 90tabs J30.1 Varinder Renner MD 01/12/2021 Ipratropium Bromide0.06% Solution use 2 sprays in each nostril every 6 hours as needed for runny nose. 45ml Varinder Renner MD 12/16/2019 Rosuvastatin Gdjxopj64ps Tablets Take One Tablet By Mouth Once Daily 90tabs E78.5 Huong Bai MD 04/19/[address] Take One Capsule By Mouth Once Daily 90caps K29.00 Paul Starkey JR, MD 12/29/2017 Ndpofkc03hjd/Act Suspension 2 sprays each nostril daily 1units J30.89 Paul Starkey JR, MD 09/15/[address] 1 by mouth every day Unknown 00/0 000 History Medications Uwmteeptzd879tk Capsules one capsule two times daily x 5 days 10caps Huong Bai MD 01/29/2024 - 02/03/2024 Uewpi332kl Tablets 1 by mouth twice a day for 14 days 28tabs Huong Bai MD 09/15/2023 - 01/29/2024 Mpybknaojradojonwn8cn TBPK Take By Mouth as Directed Per Package 21lux Bai MD 08/27/2023 - 09/10/2023 Medications Administered in Office Medication SIG Qnty Indications Ordering Provider Date Injection Dexamethasone Sodium Phosphate, 1 MGInjection Austyn Carr PA-C 07/04 Injection Kenalog 10 MG [facility] [id number] Huong Bai MD 1 06/04/2022 Immunizations CPT Code Status Date Vaccine Lot # [id number] Given 01/30/2024 Shingrix [id number] U-FLU Given 03/26/2023 Influenza,Unspecified [id number] 32435 Given 03/26/2023 Influenza Vaccine High Do se 0.5ML Age 65 & > [id number] 68132 Given 04/02/2022 Moderna Sars-Co v-2 (Covid-19) Vaccine, BiValent Booster [id number] U-FLU Given 03/20/2022 Influenza,Unspecified as1 [id number] 41751 Given 03/20/2022 Influenza Virus Vaccine, Quadrivalent (Cciiv4), Derived From Cell [id number] 01575 Given 09/18/2021 Moderna Covid-1 9 Vaccine 50mcg Booster-EMR Doc Only [id number] U-FLU Given 04/20/2021 Influenza,Unspecified 68119 Given 04/20/2021 Influenza Virus Vaccine, Quadrivalent (Cciiv4), Derived From 0 Given 04/06/2021 Moderna Sars-Co v-2 (Cov-19) vacc,100 mcg/ 0.5 mL 12Y+EMR Doc Only [id number] 92393 Given 09/15/2020 Moderna Sars-Co v-2 (Cov-19) vacc,100 mcg/ 0.5 mL 12Y+EMR Doc Only [id number] 14924 Given 08/18/2020 Moderna Sars-Co v-2 (Cov-19) vacc,100 mcg/ 0.5 mL 12Y+EMR Doc Only [id number] 11228 Given 05/21/2019 Pneumococcal Vaccine/Pneu movax 23 [id number] 26496 Given 01/19/2019 Shingrix 87036 Given 09/01/2018 Pneumococcal Conjugate-Pr evnar 13 [id number] 72203 Given 10/05/2016 Pneumococcal Conjugate-Pr evnar 13 Vital Signs Date Vital Result Comment 01/29/2024 7:54am BP Systolic 148 mmHg BP Diastolic 88 mmHg BP Systolic Recheck 134 mmHg BP Diastolic Recheck 80 mmHg Body Temperature 96.9 F Heart Rate 83 /min Respiratory Rate 20 /min Weight 202.12 lb Weight 91.684 kg Height 69 inches 5'9" BMI (Body Mass Index) 29.8 kg/m2 O2 % BldC Oximetry 96 % [place] Body Weight 160 lb 09/10/2023 10:15am BP Systolic 144 mmHg BP Diastolic 80 mmHg BP Systolic Recheck 136 mmHg BP Diastolic Recheck 78 mmHg Body Temperature 97.6 F Heart Rate 64 /min Respiratory Rate 20 /min Weight 199.00 lb Weight 90.266 kg Height 69 inches 5'9" BMI (Body Mass Index) 29.4 kg/m2 O2 % BldC Oximetry 99 % [place] Body Weight 160 lb Results Test Acquired Date Facility Test Result H/L Range Note Comp. Met 01/22/2024 [facility] [address] [place] [address] Glucose 107 mg/dL 70-110 BUN 15 mg/dL [...] Globulin 1.9 g/dL Low 2.0-3.4 GFR 56 ML/MIN/1.73SQ M Low >60 Lipid 01/22/2024 [facility] [address] [place] [address] Cholesterol 231 mg/dL High 0-200 1 Triglyceride 351 mg/dL High 0-150 2 HDLD 40 mg/dL See Comment 3 Measured LDL 173 mg/dL High 0-130 4 Calc VLDL 70.2 mg/dL See Comment 5 Chol/HDL 5.8 RATIO See Comment 6 Non-HDL 191 mg/dL See Comment 7 Laboratory test finding 01/22/2024 [facility] [address] [place] [address] TSH 1.17 uIU/mL 0.50-6.00 Psa2 1.1 ng/mL 0.0-4.0 Hba1c 01/22/2024 [facility] [address] [place] [address] A1c 5.80 % 4.70-6.50 8 CBC W/Diff 01/22/2024 [facility] [address] [place] [address] [phone] WBC 6.4 10^3/M3 3.1-9.2 RBC 4.49 10^6/M3 4.00-5.80 HGB 13.9 GR/DL 12.5-17.5 HCT 41.3 % 37.5-52.5 MCV 92.0 CUMICR 82.6-95.8 MCH 30.9 PICOGR 27.9-32.9 MCHC 33.6 % 32.6-35.4 RDW 14.9 % High 11.4-14.6 PLT 190 10^3/M3 140-350 MPV 8.4 CUMICR 7.0-10.6 %Neut 61.3 % 40.0-75.0 %Lymph 24.9 % 17.0-45.0 %Karnes 10.6 % 1.0-11.0 %Eos 2.7 % 0.0-6.0 %Baso 0.5 % 0.0-2.0 #Neut 3.9 10^3/M3 1.5-8.0 #Lymph 1.6 10^3/M3 0.8-3.2 #Karnes 0.7 10^3/M3 0.0-0.8 #Eos 0.2 10^3/m3 0.0-0.4 #Baso 0.0 10^3/m3 0.0-0.2 Laboratory test finding 12/15/2023 [facility] [address] [place] [address] [phone] BNP 90.0 pg/mL 0.0-100.0 CBC No Diff 12/15/2023 [facility] [address] [place] [address] WBC 7.2 10^3/M3 3.1-9.2 RBC 4.84 10^6/M3 4.00-5.80 HGB 14.1 GR/DL 12.5-17.5 HCT 44.8 % 37.5-52.5 MCV 92.7 CUMICR 82.6-95.8 MCH 29.3 PICOGR 27.9-32.9 MCHC 31.6 % Low 32.6-35.4 RDW 16.2 % High 11.4-14.6 PLT 212 10^3/M3 140-350 MPV 8.3 CUMICR 7.0-10.6 Manual Diff 12/15/2023 [facility] [address] [place] [address] [phone] Seg 75 45-75 Lymph 18 Low 20-45 Karnes 6 0-10 Eosin 1 0-6 Baso 0 0-2 RBC Morphology NORMAL Laboratory test finding 09/10/2023 [facility] [address] [place] [address] TSH 1.26 uIU/mL 0.50-6.00 Urinalysis,C ult If Indicated 09/10/2023 [facility] [address] [place] [address] RFLX Culture YES Laboratory test finding 09/10/2023 [facility] [address] [place] [address] [phone] Psa2 1.6 ng/mL 0.0-4.0 Hba1c 09/10/2023 [facility] [address] [place] [address] [phone] A1c 5.60 % 4.70-6.50 9 Laboratory test finding 09/10/2023 [facility] [address] [place], [place] [id number] [phone] BNP 77.0 pg/mL 0.0-100.0 Urinalysis 09/10/2023 [facility] [address] [place], [place] [id number] [phone] Color LIGHT-YELLOW Appearance CLEAR Clear Spec.Grav. 1.021 1.005-1.02 5 Leukocytes TRACE Abnormal Negative Nitrite NEGATIVE Negative PH 5.5 Low 6.0-7.5 Protein NEGATIVE Negative Urine Glucose NEGATIVE Negative Ketone NEGATIVE Negative Urobilinogen NORMAL E.U./DL Normal Bilirubin NEGATIVE Negative Blood NEGATIVE Negative WBC-U 6-10 /HPF Abnormal 0-5/HPF RBC-U 0-2 /HPF 0-5/HPF Bacteria NONE SEEN None Seen Hyaline Casts 6-10 /LPF Abnormal None Se en Squamous 0-2 /HPF 0-5/HPF Sperm PRESENT Abnormal Not Present Urine Culture 09/10/2023 [facility] [address] [place] [address] [phone] Urine Source URINE Total Col Count 75,000 COL/CC Urine Isolate#1 09/10/2023 [facility] [address] [place] [address] Isolate #1 Escherichia coli 10 Amox/K Clav <=8/4 S Ampicillin <=8 S Aztreonam <=4 S Cefazolin <=2 S Cefepime <=2 S Ceftriaxone <=1 S Ciprofloxacin <=0.25 S Gentamicin <=2 S Nitrofurantoin <=32 S Tetracycline <=4 S Tobramycin <=2 S Trimeth/Sulfa <=2/38 S Meropenem <=1 S Comp. Met 09/10/2023 [facility] [address] [place] [address] Glucose 87 mg/dL 70-110 BUN 24 mg/dL 6-25 Creatinine 1.8 mg/dL High 0.7-1.3 Sodium 143 mEq/L 135-145 Potassium 4.3 mEq/L 3.5-5.0 Chloride 100 mEq/L 95-107 Co-2 31 mEq/L 24-31 Alk Phos 77 IU/L 43-122 Alt(SGPT) 17 IU/L 10-40 Ast(Sgot) 19 IU/L 3-42 T.Bilirubin 0.4 mg/dL 0.1-1.3 Calcium 9.5 mg/dL 8.5-10.6 Tot.Protein 6.5 g/dL 5.8-8.0 Albumin 4.3 g/dL 3.0-5.2 Globulin 2.2 g/dL 2.0-3.4 GFR 39 ML/MIN/1.73SQ M Low >60 CBC W/Diff 09/10/2023 [facility] [address] [place], [place] [address] WBC 9.2 10^3/M3 3.1-9.2 RBC 4.51 10^6/M3 4.00-5.80 HGB 14.2 GR/DL 12.5-17.5 HCT 43.2 % 37.5-52.5 MCV 95.8 CUMICR 82.6-95.8 MCH 31.5 PICOGR 27.9-32.9 MCHC 32.9 % 32.6-35.4 RDW 16.0 % High 11.4-14.6 PLT 217 10^3/M3 140-350 MPV 8.8 CUMICR 7.0-10.6 %Neut 67.6 % 40.0-75.0 %Lymph 20.2 % 17.0-45.0 %Karnes 10.3 % 1.0-11.0 %Eos 1.3 % 0.0-6.0 %Baso 0.6 % 0.0-2.0 #Neut 6.2 10^3/M3 1.5-8.0 #Lymph 1.9 10^3/M3 0.8-3.2 #Karnes 0.9 10^3/M3 High 0.0-0.8 #Eos 0.1 10^3/m3 0.0-0.4 #Baso 0.1 10^3/m3 0.0-0.2 1 CHOLESTEROL Less than 200mg/dl Low risk [...] 120-6 330-13 150-7 90-5 300-12 270-11 240-10 9 MEAN GLUCOSE IN mg/d L/A1c% POOR CONTROL FAIR CONTROL GOOD CONTROL EXCELLENT CONTROL 360-14 210-9 180-8 120-6 330-13 150-7 90-5 300-12 270-11 240-10 10 Escherichia coli Procedures Date Code Description Status 01/29/2024 G2211 Continuation of care e/m vis it add on Completed 01/29/2024 3079F PVRP Diastolic BP 80-89 MMHG Completed 01/29/2024 3075F PVRP Systolic BP 130 To 139 MMHG Completed 01/22/2024 80066 Venipuncture Routine Complet ed 12/15/2023 44602 Remove Impact Cerumen Irriga tion Completed 12/15/2023 65553 Venipuncture Routine Complet ed 09/10/2023 72054 Venipuncture Routine Complet ed 09/10/2023 3078F PVRP Diastolic BP <80 mmHg C ompleted 09/10/2023 3075F PVRP Systolic BP 130 To 139 MMHG Completed Medical Devices Description No Information Available Encounters Type Date Location Provider Dx Diagnosis Office Visit 01/29/2024 8:00a Rupert Carr PA-C I10 Essential (primary) hypertension E78.2 Mixed hyperlipidemia N18.30 Chronic kidney disea se, stage 3 unspecified J32.0 Chronic maxillary si nusitis L03.113 Cellulitis of right upper limb Office Visit 09/10/2023 10:30a Rupert Carr PA-C I65.23 Occlusion and stenosis of bilateral carotid arteries N18.30 Chronic kidney disea se, stage 3 unspecified R06.02 Shortness of breath J32.0 Chronic maxillary si nusitis I12.9 Hypertensive chronic kidney disease w stg 1-4/unsp chr kdny E78.2 Mixed hyperlipidemia N40.1 Benign prostatic hyp erplasia with lower urinary tract symp R73.01 Impaired fasting glu cose Office Visit 09/02/2023 10:45a Rupert palmer MD H61.23 Impacted cerumen, bilateral Assessments Date Code Description Provider 01/29/2024 I10 Essential (primary) hyperten hank Austyn Carr PA-C 01/29/2024 E78.2 Mixed hyperlipidemia Austyn Carr PA-C 01/29/2024 N18.30 Chronic kidney d isease, stage 3 unspecified Austyn Carr PA-C 01/29/2024 J32.0 Chronic maxillary sinusitis Austyn Carr PA-C 01/29/2024 L03.113 Cellulitis of right upper li mb Austyn Carr PA-C 01/22/2024 I10 Essential (primary) hyperten hank Hunog Bai MD 01/22/2024 I10 Essential (primary) hyperten hank Lab - [place] 01/22/2024 E78.2 Mixed hyperlipidemia Huong Bai MD 01/22/2024 E78.2 Mixed hyperlipidemia Lab - [place] 01/22/2024 N18.3 Chronic kidney disease, stag e 3 (moderate) Huong Bai MD 01/22/2024 N18.3 Chronic kidney disease, stag e 3 (moderate) Lab - [place] 01/22/2024 N40.1 Benign prostatic hyperplasia with lower urinary tract symptoms Huong Bai MD 01/22/2024 N40.1 Benign prostatic hyperplasia with lower urinary tract symptoms Lab - [place] 01/22/2024 R73.01 Impaired fasting glucose Bismark Bai MD 01/22/2024 R73.01 Impaired fasting glucose Lab - [place] 12/15/2023 H61.23 Impacted cerumen, bilateral Huong Bai MD 12/15/2023 H61.23 Impacted cerumen, bilateral Lab - [place] 12/15/2023 R06.02 Shortness of breath Huong Bai MD 12/15/2023 R06.02 Shortness of breath Lab - [place] 11/30/2023 I10 Essential (primary) hyperten hank Austyn Carr PA-C 11/30/2023 E78.2 Mixed hyperlipidemia Austyn Brown ABEL Carr-C 11/30/2023 N40.1 Benign prostatic hyperplasia with lower urinary tract symptoms Austyn DELSI BaxterC 10/31/2023 I10 Essential (primary) hyperten hank Brown ABEL Carr-C 10/31/2023 E78.2 Mixed hyperlipidemia Austyn Brown ELSI CarrC 09/30/2023 I10 Essential (primary) hyperten hank Brown ABEL Carr-C 09/30/2023 E78.2 Mixed hyperlipidemia Austyn Brown ABEL Carr-C 09/10/2023 N40.1 Benign prostatic hyperplasia with lower urinary tract symptoms Austyn DELSI BaxterC 09/10/[address] enosis of bilateral carotid arteries Austyn DELSI BaxterC 09/10/2023 N18.30 Chronic kidney d isease, stage 3 unspecified AustynELSI ChowdhuryC 09/10/2023 R06.02 Shortness of breath Austyn D ELSI BaxterC 09/10/2023 J32.0 Chronic maxillary sinusitis Austyn NadineELSI BaxterC 09/10/2023 I12.9 Hypertensive chr onic kidney disease with stage 1 through stage 4 chronic kidney disease, or unspecified chronic kidney disease AustynELSI ChowdhuryC 09/10/2023 E78.2 Mixed hyperlipidemia Austyn DELSI BaxterC 09/10/2023 N40.1 Benign prostatic hyperplasia with lower urinary tract symptoms Austyn DELSI BaxterC 09/10/2023 I10 Essential (primary) hyperten hank Lab - [place] 09/10/2023 R73.01 Impaired fasting glucose Nicola MccoyELSI BaxterC 09/10/2023 E78.2 Mixed hyperlipidemia Lab - [place] 09/10/2023 N18.3 Chronic kidney disease, stag e 3 (moderate) Lab - [place] 09/10/2023 N40.1 Benign prostatic hyperplasia with lower urinary tract symptoms Lab - [place] 09/10/2023 R73.01 Impaired fasting glucose Lab - [place] 09/10/2023 R06.02 Shortness of breath Lab - [place] 09/02/2023 H61.23 Impacted cerumen, bilateral Huong Bai MD 08/31/2023 I10 Essential (primary) hyperten hank Austyn Carr PA-C 08/31/2023 E78.2 Mixed hyperlipidemia Austyn Carr PA-C Plan of Treatment Future Appointment(s):* 08/02/2024 9:00 am - Austyn Carr PA-C at [place] * 07/26/2024 8:00 am - [facility] [place] [facility] [place] 01/29/2024 - Austyn Carr PA-C* I10 Essential (primary) hypertension* New Labs:* CBC W/Diff, Scheduled: 07/19/24 * Comp. Met, Scheduled: 07/19/24 * Lipid, Scheduled: 07/19/24 * TSH, Scheduled: 07/19/24 * Psa2, Scheduled: 07/19/24 * Hba1c, Scheduled: 07/19/24 * Comments:* Improved after recheck Low-sodium diet Continue metoprolol * Recommendations:* Low-salt diet. Exercise. Continue medication as directed. * E78.2 Mixed hyperlipidemia* New Labs:* CBC W/Diff, Scheduled: 07/19/24 * Comp. Met, Scheduled: 07/19/24 * Lipid, Scheduled: 07/19/24 * TSH, Scheduled: 07/19/24 * Psa2, Scheduled: 07/19/24 * Hba1c, Scheduled: 07/19/24 * Comments:* Continue current medication. Lab results discussed with patient Admits he had not been taking rosuvastatin Diet and exercise plan discussed * Recommendations:* Low-fat, low-cholesterol diet. Exercise. 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 * L03.113 Cellulitis of right upper limb* Comments:* Complete antibiotics Notify us if symptoms do not improve * All* New Medication:* Fast Acting B12 2500 mcg - 1 by mouth every day * Cephalexin 500 mg - one capsule two times daily x 5 days * Follow up:* Follow up 6 months [facility] one week prior Functional Status Description No Information Available Mental Status Description No Information Available Referrals Refer to Reason for Referral Status Appt Jeronimo e Created [facility] Closed 10/10/[address] [place] [address] [address] [place] [address] [phone]
--- OUTSIDE RECORDS SUMMARY | 2024-08-12 07:58 | External Medical Summary | Continuity of Care Document ---
Author Name Unknown Organization [facility] Address [address] [place] [address] Phone [phone] Care Team Providers Care Pricing Intern Name Role Phone Yocasta Medina Care Team Information Receiv er [phone] Problems Active Problems Provider Date Allergic rhinitis [...] Indications Order ing Provider Date Amoxicillin/Clavula sherrill [id number] Tablets take one tab two times a day for 10 days 20tabs J32.0 Huong Bai MD 03/19/2024 Rxlrzekwio09fn Tablets take one tablet orally once a day for five days. 5tabs J32.0 Huong Bai MD 03/19/2024 Ecdcjnuwgec352xo Capsules take one tab three times a day as needed 30caps J32.0 Huong Bai MD 03/19/2024 Albuterol Sulfate DTL514(90Base) mcg/Act Aerosol take 2 puff as needed for shortness of breath. 8.5Each J32.0 Huong Bai MD 03/19/2024 Jycwxozyq308-793zp Tablets one tab PO twice a day for 14 days 28tabs J01.80 Huong Bai MD 03/19/2024 Metoprolol Upswktsz07jg Tablets Take One-Half Tablet By Mouth Twice Daily 90tabs I10 Huong Bai MD 02/11/2024 Fast Acting [id number] Tablets Sub 1 by mouth every day 90tabs Huong acosta MD 01/29/2024 Methylprednisolone4 mg TBPK Take By Mouth as Directed Per Package 21units Huong Bai MD 09/22/2023 Bqrehnzbbp7kg Tablets Take 1 Tablet By Mouth Once Daily as Needed 90tabs Huong Bai MD 09/10/2023 Hxahynqx08sxm/0.5ML Suspension Rec one inj intramuscular 1units Huong Bai MD 01/27/2023 Pkpzldnyos53rz Tablets Take 1 Tablet By Mouth Once Daily In The Evening 90tabs Huong Bai MD 11/01/2022 Nitroglycerin0.4mg Tablets Sub Dissolve One Under The Tongue Every Five Minutes Up To Three Dose as Needed For Chest Pain 25tabs Huong Bai MD 11/07/2021 Loratadine-D 00QQ9-994ev Tablets ER 12HR Take One Tablet By Mouth Once Daily For Sinuses 90tabs J30.1 Varinder Renner MD 01/12/2021 Ipratropium Bromide0.06% Solution use 2 sprays in each nostril every 6 hours as needed for runny nose. 45ml Varinder Renner MD 12/16/2019 Rosuvastatin Ibesbnf48he Tablets Take One Tablet By Mouth Once Daily 90tabs E78.5 Huong Bai MD 04/19/[address] Take One Capsule By Mouth Once Daily 90caps K29.00 Paul Starkey JR, MD 12/29/2017 Tvsezdt87jgc/Act Suspension 2 sprays each nostril daily 1units J30.89 Paul Starkey JR, MD 09/15/[address] 1 by mouth every day Unknown 00/0 000 History Medications Avcombatfz618mo Capsules one capsule two times daily x 5 days 10caps Huong Bai MD 01/29/2024 - 02/03/2024 Medications Administered in Office Medication SIG Qnty Indications Ordering Provider Date Injection Dexamethasone Sodium Phosphate, 1 MGInjection Austyn Carr PA-C 07/[address] [facility] [id number] Huong Bai MD 1 06/04/2022 Immunizations CPT Code Status Date Vaccine Lot # [id number] Given 01/30/2024 Shingrix [id number] U-FLU Given 03/26/2023 Influenza,Unspecified [id number] 80072 Given 03/26/2023 Influenza Vaccine High Do se 0.5ML Age 65 & > [id number] 32773 Given 04/02/2022 Moderna Sars-Co v-2 (Covid-19) Vaccine, BiValent Booster 12y+ [id number] U-FLU Given 03/20/2022 Influenza,Unspecified as1 [id number] 33484 Given 03/20/2022 Influenza Virus Vaccine, Quadrivalent (Cciiv4), Derived From Cell [id number] 23842 Given 09/18/2021 Moderna Covid-1 9 Vaccine 50mcg Booster-EMR Doc Only [id number] U-FLU Given 04/20/2021 Influenza,Unspecified 03860 Given 04/20/2021 Influenza Virus Vaccine, Quadrivalent (Cciiv4), Derived From 0 Given 04/06/2021 Moderna Sars-Co v-2 (Cov-19) vacc,100 mcg/ 0.5 mL 12Y+EMR Doc Only [id number] 02129 Given 09/15/2020 Moderna Sars-Co v-2 (Cov-19) vacc,100 mcg/ 0.5 mL 12Y+EMR Doc Only [id number] 99670 Given 08/18/2020 Moderna Sars-Co v-2 (Cov-19) vacc,100 mcg/ 0.5 mL 12Y+EMR Doc Only [id number] 67096 Given 05/21/2019 Pneumococcal Vaccine/Pneu movax 23 [id number] 64205 Given 01/19/2019 Shingrix [id number] Given 09/01/2018 Pneumococcal Conjugate-Pr evnar 13 [id number] 00162 Given 10/05/2016 Pneumococcal Conjugate-Pr evnar 13 Vital Signs Date Vital Result Comment 03/19/2024 2:12pm BP Systolic 136 mmHg BP Diastolic 82 mmHg Body Temperature 97.7 F Heart Rate 64 /min Respiratory Rate 22 /min Weight 203.12 lb Weight 92.138 kg Height 69 inches 5'9" BMI (Body Mass Index) 30.0 kg/m2 O2 % BldC Oximetry 94 % [place] Body Weight 160 lb 01/29/2024 7:54am BP Systolic 148 mmHg BP Diastolic 88 mmHg BP Systolic Recheck 134 mmHg BP Diastolic Recheck 80 mmHg Body Temperature 96.9 F Heart Rate 83 /min Respiratory Rate 20 /min Weight 202.12 lb Weight 91.684 kg Height 69 inches 5'9" BMI (Body Mass Index) 29.8 kg/m2 O2 % BldC Oximetry 96 % [place] Body Weight 160 lb Results Test Acquired Date Facility Test Result H/L Range Note Laboratory test finding 03/19/2024 [facility] (In Office Test) Sars Antigen - In Office negative CBC W/Diff 01/22/2024 [facility] [address] [place] [address] [phone] WBC 6.4 10^3/M3 3.1-9.2 RBC 4.49 10^6/M3 4.00-5.80 HGB 13.9 GR/DL 12.5-17.5 HCT 41.3 % 37.5-52.5 MCV 92.0 CUMICR 82.6-95.8 MCH 30.9 PICOGR 27.9-32.9 MCHC 33.6 % 32.6-35.4 RDW 14.9 % High 11.4-14.6 PLT 190 10^3/M3 140-350 MPV 8.4 CUMICR 7.0-10.6 %Neut 61.3 % 40.0-75.0 %Lymph 24.9 % 17.0-45.0 %[place] 10.6 % 1.0-11.0 %Eos 2.7 % 0.0-6.0 %Baso 0.5 % 0.0-2.0 #Neut 3.9 10^3/M3 1.5-8.0 #Lymph 1.6 10^3/M3 0.8-3.2 #[place] 0.7 10^3/M3 0.0-0.8 #Eos 0.2 10^3/m3 0.0-0.4 #Baso 0.0 10^3/m3 0.0-0.2 Comp. Met 01/22/2024 [facility] [address] [place] [address] Glucose 107 mg/dL 70-110 BUN 15 mg/dL [...] 56 ML/MIN/1.73 SQM Low >60 Lipid 01/22/2024 [facility] [address] [place] [address] Cholesterol 231 mg/dL High 0-200 1 Triglyceride 351 mg/dL High 0-150 2 HDLD 40 mg/dL See Comment 3 Measured LDL 173 mg/dL High 0-130 4 Calc VLDL 70.2 mg/dL See Comment 5 Chol/HDL 5.8 RATIO See Comment 6 Non-HDL 191 mg/dL See Comment 7 Laboratory test finding 01/22/2024 [facility] [address] [place] [address] TSH 1.17 uIU/mL 0.50-6.00 Psa2 1.1 ng/mL 0.0-4.0 Hba1c 01/22/2024 [facility] [address] [place] [address] [phone] A1c 5.80 % 4.70-6.50 8 Laboratory test finding 12/15/2023 [facility] [address] [place] [address] [phone] BNP 90.0 pg/mL 0.0-100.0 CBC No Diff 12/15/2023 [facility] [address] [place] [address] [phone] WBC 7.2 10^3/M3 3.1-9.2 RBC 4.84 10^6/M3 4.00-5.80 HGB 14.1 GR/DL 12.5-17.5 HCT 44.8 % 37.5-52.5 MCV 92.7 CUMICR 82.6-95.8 MCH 29.3 PICOGR 27.9-32.9 MCHC 31.6 % Low 32.6-35.4 RDW 16.2 % High 11.4-14.6 PLT 212 10^3/M3 140-350 MPV 8.3 CUMICR 7.0-10.6 Manual Diff 12/15/2023 [facility] [address] [place] [address] Seg 75 45-75 Lymph 18 Low 20-45 [place] 6 0-10 Eosin 1 0-6 Baso 0 [...] BP 130 To 139 MMHG Completed 01/22/2024 33252 Venipuncture Routine Complet ed 12/15/2023 61935 Remove Impact Cerumen Irriga tion Completed 12/15/2023 05916 Venipuncture Routine Complet ed Medical Devices Description [...] I10 Essential (primary) hyperten hank Lab - [place] 01/22/2024 E78.2 Mixed hyperlipidemia Huong Bia MD 01/22/2024 E78.2 Mixed hyperlipidemia Lab - [place] 01/22/2024 N18.3 Chronic kidney disease, stag e 3 (moderate) Huong Bai MD 01/22/2024 N18.3 Chronic kidney disease, stag e 3 (moderate) Lab - [place] 01/22/2024 N40.1 Benign prostatic hyperplasia with lower urinary tract symptoms Huong Bai MD 01/22/2024 N40.1 Benign prostatic hyperplasia with lower urinary tract symptoms Lab - [place] 01/22/2024 R73.01 Impaired fasting glucose Bismark Bai MD 01/22/2024 R73.01 Impaired fasting glucose Lab - [place] 12/15/2023 H61.23 Impacted cerumen, bilateral Huong Bai MD 12/15/2023 H61.23 Impacted cerumen, bilateral Lab - [place] 12/15/2023 R06.02 Shortness of breath Huong Bai MD 12/15/2023 R06.02 Shortness of breath Lab - [place] 11/30/2023 I10 Essential (primary) hyperten hank ELSI FerrerC 11/30/2023 E78.2 Mixed hyperlipidemia ESLI FerrerC 11/30/2023 N40.1 Benign prostatic hyperplasia with lower urinary tract symptoms Austyn Carr PA-C 10/31/2023 I10 Essential (primary) hyperten hankELSI NiceC 10/31/2023 E78.2 Mixed hyperlipidemia ELSI FerrerC 09/30/2023 I10 Essential (primary) hyperten hank Austyn Carr PA-C 09/30/2023 E78.2 Mixed hyperlipidemia Austyn Carr PA-C Plan of Treatment Future Appointment(s):* 08/02/2024 9:00 am - Austyn Carr PA-C at [facility] * 07/26/2024 8:00 am - Lab - [place] [facility] [place] 03/19/2024 - Huong Bai MD* J32.0 Chronic [...] for Referral Status Appt Jeronimo e Created [facility] Closed 10/10/2023 0 [facility] [address] [place] [id number] [phone]
[2024-08-12] MEDS: ASPIRIN 81 MG ECTAB PO SCH (08:22)
[2024-08-12] MEDS: FAMOTIDINE 20 MG TAB PO SCH (08:22)
[2024-08-12] MEDS: PANTOprazole 40 MG TAB PO SCH (08:22)
[2024-08-12] MEDS: DOXYCYCLINE HYCLATE 100 MG in DEXTROSE 5% MINI-B 100 ML IV SCH (08:25)
[2024-08-12 10:12] LABS: ANTI-Xa, UFH(UnfractionatedHep 0.26 IU/ml (0.3-0.7)
--- NOTE | 2024-08-12 10:45 | Pharmacy Report ---
Pharmacy PK ABX Note - Date of Service August 12, 2024 - Assessment and Plan Assessment 83 year old M receiving Vancomycin + Zosyn + Doxycycline for treatment of CAP. * Day #1 of antimicrobial therapy. * Low grade fever x 1 upon presentation. Leukocytosis present. Lactate and procal elevated. SCr 1.44 mg/dL, unknown baseline. * Blood cultures pending. Respiratory biofire and MRSA nasal swab negative. Attending would like to keep vancomycin until blood cultures result. * Will order a random level early in the course tomorrow morning to hopefully avoid weekend levels. Plan Vancomycin * Loading dose: 2000 mg IV x 1 * Maintenance dose: 1250 mg IV every 24 hours * Regimen is predicted to achieve target AUC/SOBEIDA of 400-600 mg/L.hr * Random level ordered for: 08/13/24 Zosyn * 4.5 g IV every 8 hours Doxycycline * 100 mg IV every 12 hours Pharmacy will continue to follow and will adjust dose/frequency as necessary. Thank you. Pharmacy has transitioned to AUC monitoring for vancomycin. AUC/SOBEIDA is the preferred PK/PD target and is associated with decreased risk of nephrotoxicity compared to traditional trough targets.
--- NOTE | 2024-08-12 11:09 | Cardiology Consultation ---
Date of Consultation August 12, 2024 Assessment & Plan (1) Non-ST elevation WI (NSTEMI): (2) Sepsis: (3) Aspiration pneumonia: Plan Patient is an 83-year-old male with known coronary artery disease and probable underlying hypertrophic cardiomyopathy by echocardiogram review, septal and apical variant. Presents now with findings suggestive of acute sepsis with elevated heart rate, dynamic EKG changes and elevated troponin. Impression: 1. Findings suggestive of acute sepsis with elevated white cell count fever nausea and vomiting. Patient received empiric antibiotics and resuscitation currently without acute complaint 2. Elevated troponin with findings consistent with demand ischemia question right coronary artery disease by EKG and echocardiogram: IV anticoagulation initiated. Will add back beta-xavier. Continue to hold lisinopril amlodipine May warrant coronary angiography as part of investigation once sepsis issues stabilized. Continue aspirin and rosuvastatin Will keep n.p.o. after midnight 3. Probable hypertrophic cardiomyopathy Versus longstanding hypertensive disease with severe LVH and apical septal thickening on echocardiogram and chest CT. Will attempt obtain records from current dining car hop [facility] History of Present Illness Reason for Consultation: Sepsis, elevated troponin Requesting Physician: Darrel murphy Attending Physician: Rashid Watkins MD History of Present Illness Patient is an 83-year-old male per patient with known coronary disease prior remote cardiac catheterization and coronary invention 2005, hypertension, hyperlipidemia on therapy. Follows routinely with [facility] cardiology [place] with annual event monitor. Very physically active without cardiac complaint but presents this admission noting having felt poorly for several days with constipation nausea and vomiting. Possibly running fevers as well. Has begun resuscitation in ER with antibiotics and fluids. Initial troponins elevated with further elevation this morning. EKG with transient inferoposterior ischemia. Currently denies chest pains or shortness of breath. Feels improved since hospitalization. Denies any recent anginal symptoms. 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 No tachypalpitations syncope or near syncope. No fevers or chills currently. Notes no bleeding issues melena or hematochezia. His appetite and weight have been stable. No sleep disruption. Takes several medications for hypertension as well as for chronic sinusitis Allergies Allergy/AdvReac Type Severity Reaction Status Date / Time No Known Allergies Allergy Verified 08/11/24 19:43 Home Medications Medication Instructions Recorded Confirmed Type albuterol sulfate 90 mcg/actuation 2 puff inhalation DIRECTED PRN 08/11/24 08/11/24 History aerosol inhaler Shortness Of Breath amlodipine 10 mg tablet (Norvasc) 10 mg PO DAILY 08/11/24 08/11/24 History aspirin 81 mg tablet,delayed 81 mg PO DAILY 08/11/24 08/11/24 History release famotidine 40 mg tablet 20 mg PO BID 08/11/24 08/11/24 History lisinopril 10 mg tablet 10 mg PO DAILY 08/11/24 08/11/24 History loratadine 5 mg-pseudoephedrine ER 1 tab PO DAILY 08/11/24 08/11/24 History 120 mg tablet,extended release,12hr (Loratadine-D) metoprolol tartrate 25 mg tablet 25 mg PO BID 08/11/24 08/11/24 History nitroglycerin 0.4 mg sublingual 0.4 mg sublingual DIRECTED PRN 08/11/24 08/11/24 History tablet Chest Pain omeprazole 20 mg capsule,delayed 20 mg PO DAILY 08/11/24 08/11/24 History release ondansetron HCl 4 mg tablet 4 mg PO TID PRN NAUSEA/VOMITING 08/11/24 08/11/24 History rosuvastatin 20 mg tablet 20 mg PO DAILY 08/11/24 08/11/24 History Patient History Medical History Hx of gastroesophageal reflux (GERD) Coronary artery disease Surgical History History of coronary artery stent placement Social History Smoking Status: Never smoker Hx Alcohol Use: No Hx Substance Use: No Preferred Language: Turkmen Communication Ability: Effective Linux Vmware Administrator Required: No Beliefs That Will Affect Care: None Current Living Situation: Spouse Feels Safe at Home: Yes Safety Concerns: Feels Safe At This Time Assistive Devices: Denture - Upper and Denture - Lower Review of Systems Review of Systems: All systems reviewed & are unremarkable except as noted in HPI & below Physical Exam Constitutional: + obese; no acute distress Eyes: PERRL, conjunctivae normal, anicteric sclerae Neck: trachea midline, no thyromegaly + thick neck Respiratory: Crackles right base Cardiovascular: Rate/Rhythm: regular rate and regular rhythm Heart Sounds: normal S1 and normal S2; no murmur Vessels: no JVD Extremities: no edema Gastrointestinal (Abdomen): normal bowel sounds, soft, nontender, no hepatosplenomegaly Skin: no rashes, warm and dry Results & Data Vital Signs (Past 12 Hours) Vital Signs Pulse Pulse Resp BP BP Pulse Ox O2 Del Method 08/12/24 11:00 88 33 H 95 08/12/24 10:06 85 39 H 94 Nasal Cannula 08/12/24 10:06 115/67 08/12/24 09:21 98 H 38 H 123/72 93 Nasal Cannula 08/12/24 07:40 93 Nasal Cannula 08/12/24 07:40 84 L Room Air 08/12/24 07:20 100 H 36 H 123/77 93 Room Air 08/12/24 07:04 102 H 08/12/24 06:43 102 H 24 96/74 L 08/12/24 01:33 102 H 35 H 86 L 08/12/24 00:58 Room Air 08/12/24 00:00 100 H 35 H 92 Room Air O2 Flow Rate 08/12/24 11:00 08/12/24 10:06 2 08/12/24 10:06 08/12/24 09:21 2 08/12/24 07:40 2 08/12/24 07:40 08/12/24 07:20 08/12/24 07:04 08/12/24 06:43 08/12/24 01:33 08/12/24 00:58 08/12/24 00:00 Laboratory Results Laboratory Results - last 24 hr 08/11/24 08/11/24 08/11/24 17:48 18:01 19:23 WBC 18.25 H RBC 4.98 Hgb 14.8 Hct 45.9 MCV 92.2 MCH 29.7 MCHC 32.2 RDW Std Deviation 47.3 H RDW Coeff of Mandeep 14.0 Plt Count 169 MPV 10.0 Immature Gran % (Auto) 0.6 Neut % (Auto) 94.4 Lymph % (Auto) 1.2 [place] % (Auto) 2.9 Eos % (Auto) 0.6 Baso % (Auto) 0.3 Neut # (Auto) 17.24 H Lymph # (Auto) 0.21 L [place] # (Auto) 0.53 Eos # (Auto) 0.11 Baso # (Auto) 0.05 Immature Gran # (Auto) 0.11 RBC Morphology Unremarkable PT 11.2 INR 1.0 Heparin Anti-Xa, Unfract Sodium 138 Potassium 4.6 Chloride 102 Carbon Dioxide 25 Anion Gap 11 BUN 18 Creatinine 1.64 H Est Cr Clr Drug Dosing Not Reportable eGFR 41.76 BUN/Creatinine Ratio 11.0 Glucose 119 H Lactate 3.5 H* Calcium 9.6 Magnesium 1.6 L Total Bilirubin 0.8 Direct Bilirubin 0.2 AST 23 ALT 19 Alkaline Phosphatase 66 Troponin I High Sens 331.2 H* 529.3 H* D Total Protein 7.0 Albumin 4.3 Globulin 2.7 Albumin/Globulin Ratio 1.6 Triglycerides Cholesterol LDL Cholesterol, Calc VLDL Cholesterol, Calc HDL Cholesterol Cholesterol/HDL Ratio Lipase 11 Procalcitonin 5.25 H Urine Color Urine Appearance Urine pH Ur Specific [place] Urine Protein Urine Glucose (UA) Urine Ketones Urine Blood Urine Nitrite Urine Bilirubin Urine Urobilinogen Ur Leukocyte Esterase Urine WBC (Auto) Urine RBC (Auto) U Hyaline Cast (Auto) U Epithel Cells (Auto) Urine Bacteria (Auto) Nasal Screen MRSA (PCR) Adenovirus (PCR) Not Detected Anaplasma Smear Babesia Smear Babesia microti DNA PCR B. pertussis DNA (PCR) Not Detected B.parapertussis DNA PCR Not Detected Lyme Disease Screen C. pneumoniae DNA (PCR) Not Detected Coronavirus OC43 (PCR) Not Detected Coronavirus HKU1 (PCR) Not Detected Coronavirus 229E (PCR) Not Detected SARS-CoV-2 (PCR) Not Detected Coronavirus NL63 (PCR) Not Detected Human Metapneumovir PCR Not Detected Influenza Type A (PCR) Not Detected Influenza Type B (PCR) Not Detected M. pneumoniae (PCR) Not Detected Parainfluenza 1 (PCR) Not Detected Parainfluenza 2 (PCR) Not Detected Parainfluenza 3 (PCR) Not Detected Parainfluenza 4 (PCR) Not Detected RSV (PCR) Not Detected Entero/Rhino (PCR) Not Detected 08/11/24 08/11/24 08/12/24 20:30 21:26 00:50 WBC RBC Hgb Hct MCV MCH MCHC RDW Std Deviation RDW Coeff of Mandeep Plt Count MPV Immature Gran % (Auto) Neut % (Auto) Lymph % (Auto) [place] % (Auto) Eos % (Auto) Baso % (Auto) Neut # (Auto) Lymph # (Auto) [place] # (Auto) Eos # (Auto) Baso # (Auto) Immature Gran # (Auto) RBC Morphology PT INR Heparin Anti-Xa, Unfract Sodium Potassium Chloride Carbon Dioxide Anion Gap BUN Creatinine Est Cr Clr Drug Dosing eGFR BUN/Creatinine Ratio Glucose Lactate 3.0 H* Calcium Magnesium Total Bilirubin Direct Bilirubin AST ALT Alkaline Phosphatase Troponin I High Sens Total Protein Albumin Globulin Albumin/Globulin Ratio Triglycerides Cholesterol LDL Cholesterol, Calc VLDL Cholesterol, Calc HDL Cholesterol Cholesterol/HDL Ratio Lipase Procalcitonin Urine Color Yellow Urine Appearance Clear Urine pH 6.5 Ur Specific [place] > 1.045 H Urine Protein Negative Urine Glucose (UA) Negative Urine Ketones Negative Urine Blood Trace H Urine Nitrite Negative Urine Bilirubin Negative Urine Urobilinogen Negative Ur Leukocyte Esterase Negative Urine WBC (Auto) 0-5 Urine RBC (Auto) 3-5 H U Hyaline Cast (Auto) 0-2 U Epithel Cells (Auto) 0-2 Urine Bacteria (Auto) None Seen Nasal Screen MRSA (PCR) Negative Adenovirus (PCR) Anaplasma Smear Babesia Smear Babesia microti DNA PCR B. pertussis DNA (PCR) B.parapertussis DNA PCR Lyme Disease Screen C. pneumoniae DNA (PCR) Coronavirus OC43 (PCR) Coronavirus HKU1 (PCR) Coronavirus 229E (PCR) SARS-CoV-2 (PCR) Coronavirus NL63 (PCR) Human Metapneumovir PCR Influenza Type A (PCR) Influenza Type B (PCR) M. pneumoniae (PCR) Parainfluenza 1 (PCR) Parainfluenza 2 (PCR) Parainfluenza 3 (PCR) Parainfluenza 4 (PCR) RSV (PCR) Entero/Rhino (PCR) 08/12/24 08/12/24 08/12/24 03:34 07:46 09:32 WBC 12.90 H RBC 4.54 L Hgb 13.7 L Hct 42.7 MCV 94.1 MCH 30.2 MCHC 32.1 RDW Std Deviation 49.1 H RDW Coeff of Mandeep 14.4 Plt Count 167 MPV 9.7 Immature Gran % (Auto) 0.3 Neut % (Auto) 89.2 Lymph % (Auto) 3.9 [place] % (Auto) 3.4 Eos % (Auto) 2.9 Baso % (Auto) 0.3 Neut # (Auto) 11.51 H Lymph # (Auto) 0.50 L [place] # (Auto) 0.44 Eos # (Auto) 0.37 Baso # (Auto) 0.04 Immature Gran # (Auto) 0.04 RBC Morphology PT INR Heparin Anti-Xa, Unfract 0.40 0.26 L Sodium 138 Potassium 4.4 Chloride 105 Carbon Dioxide 24 Anion Gap 9 BUN 17 Creatinine 1.44 H Est Cr Clr Drug Dosing 44.5 eGFR 48.82 BUN/Creatinine Ratio 11.8 Glucose 104 H Lactate 3.2 H* Calcium 8.5 L Magnesium 2.2 Total Bilirubin Direct Bilirubin AST ALT Alkaline Phosphatase Troponin I High Sens 5515.4 H* D 69796.5 H* D Total Protein Albumin Globulin Albumin/Globulin Ratio Triglycerides 142 Cholesterol 178 LDL Cholesterol, Calc 118 VLDL Cholesterol, Calc 28 HDL Cholesterol 32 Cholesterol/HDL Ratio 5.6 H Lipase Procalcitonin Urine Color Urine Appearance Urine pH Ur Specific [place] Urine Protein Urine Glucose (UA) Urine Ketones Urine Blood Urine Nitrite Urine Bilirubin Urine Urobilinogen Ur Leukocyte Esterase Urine WBC (Auto) Urine RBC (Auto) U Hyaline Cast (Auto) U Epithel Cells (Auto) Urine Bacteria (Auto) Nasal Screen MRSA (PCR) Adenovirus (PCR) Anaplasma Smear See Comment Babesia Smear See Comment Babesia microti DNA PCR Pending B. pertussis DNA (PCR) B.parapertussis DNA PCR Lyme Disease Screen Cancelled Negative C. pneumoniae DNA (PCR) Coronavirus OC43 (PCR) Coronavirus HKU1 (PCR) Coronavirus 229E (PCR) SARS-CoV-2 (PCR) Coronavirus NL63 (PCR) Human Metapneumovir PCR Influenza Type A (PCR) Influenza Type B (PCR) M. pneumoniae (PCR) Parainfluenza 1 (PCR) Parainfluenza 2 (PCR) Parainfluenza 3 (PCR) Parainfluenza 4 (PCR) RSV (PCR) Entero/Rhino (PCR) (2) Sepsis Sepsis acute organ dysfunction status: with acute organ dysfunction Sepsis type: sepsis due to unspecified organism Severe sepsis acute organ dysfunction type: unspecified Severe sepsis shock status: without septic shock Qualified Code(s): A41.9 - Sepsis, unspecified organism; R65.20 - Severe sepsis without septic shock (3) Aspiration pneumonia Aspiration pneumonia type: unspecified Laterality: bilateral Lung location: lower lobe of lung Qualified Code(s): J69.0 - Pneumonitis due to inhalation of food and vomit
--- NOTE | 2024-08-12 12:14 | Hospitalist Progress Note ---
Date of Service August 12, 2024 Assessment & Plan (1) Sepsis: Plan: 83-year-old male unassigned patient with past med history significant for CAD status post stent in 2006, hypertension, hyperlipidemia, GERD presents with nausea vomiting and fever. Possible Sepsis Patient presents with nausea vomiting and fever. Leukocytosis present on admission Procalcitonin elevated, lactate elevated Respiratory BioFire negative CTA chest showed patchy inflammatory groundglass densities in the lingula CT abdomen/pelvisno acute findings Continue empiric antibiotic with IV Vanco and Zosyn and doxycycline Follow-up on blood culture results Will obtain Lyme, blood smear Non-ST elevated NE Possible Demand Ischemia High sensitive troponin elevated to 331 on admission; uptrending to 11,000 EKG on admission showed sinus tachycardia with ST wave changes in inferolateral leads Echocardiogram shows severe asymmetric hypertrophy involving the septum and apex. Mild hypokinesis of the inferior and posterior wall at the base. EF of 65 to 70%. Continue on IV heparin, aspirin, beta-xavier, statin N.p.o. from midnight for possible cardiac catheter tomorrow a.m. History of CAD status post stent On aspirin and statin Will start on beta-xavier once sepsis improves Hypertension Holding lisinopril, amlodipine and metoprolol for now for sepsis GERD On omeprazole and famotidine, continue Hyperlipidemia On statin, continue DVT prophylaxis On IV heparin Disposition Telemetry Full code. Time spent evaluating patient, direct bedside care, chart review, placing orders, interpretation of diagnostic studies, discussion with consultants, patient, and family members, as well as other required patient management activities is 60 minutes Please note the above document was generated using voice recognition software. It may contain grammatical, syntax or spelling errors. Any formal questions or concerns about the content, text or information contained within the body of this dictation should be directly addressed to the provider for clarification Admission and Anticipated Discharge Date Admission Date: August 11, 2024 Subjective Patient seen and examined at bedside He reports that he is feeling slightly better compared to yesterday. He denies any chest pain, shortness of breath or palpitations. Review of Systems Review of Systems: All systems reviewed & are unremarkable except as noted in Subjective Physical Exam Physical Exam: Constitutional: Alert oriented x 3; not in distress. Respiratory: Bilateral vesicular breath sound Cardiovascular: RRR, no murmur, no edema Vessels: no JVD or carotid bruit Chest: normal inspection of chest Abdomen: normal bowel sounds, soft, nontender, no hepatosplenomegaly Musculoskeletal: no cyanosis or clubbing, extremities motor strength 5/5 Skin: no rashes, warm and dry normal turgor Neurologic: PERRL, EOMI, accommodation nl, no face palsy, no dysarthria CN's II- XI intact bilaterally and moves all extremities Psychiatric: A+Ox3, euthymic affect Results & Data Results & Data Vital Signs (Past 12 Hours) Vital Signs Temp Pulse Pulse Resp BP BP Pulse Ox 08/12/24 11:21 36.9 C 08/12/24 11:00 88 33 H 95 08/12/24 10:06 85 39 H 94 08/12/24 10:06 115/67 08/12/24 09:21 98 H 38 H 123/72 93 08/12/24 07:40 93 08/12/24 07:40 84 L 08/12/24 07:20 100 H 36 H 123/77 93 08/12/24 07:04 102 H 08/12/24 06:43 102 H 24 96/74 L 08/12/24 01:33 102 H 35 H 86 L 08/12/24 00:58 O2 Del Method O2 Flow Rate 08/12/24 11:21 08/12/24 11:00 08/12/24 10:06 Nasal Cannula 2 08/12/24 10:06 08/12/24 09:21 Nasal Cannula 2 08/12/24 07:40 Nasal Cannula 2 08/12/24 07:40 Room Air 08/12/24 07:20 Room Air 08/12/24 07:04 08/12/24 06:43 08/12/24 01:33 08/12/24 00:58 Room Air (1) Sepsis Sepsis acute organ dysfunction status: with acute organ dysfunction Sepsis type: sepsis due to unspecified organism Severe sepsis acute organ dysfunction type: unspecified Severe sepsis shock status: without septic shock Qualified Code(s): A41.9 - Sepsis, unspecified organism; R65.20 - Severe sepsis without septic shock
[2024-08-12] MEDS: METOPROLOL TARTRATE 25 MG TAB PO SCH (12:17)
[2024-08-12] MEDS: VANCOMYCIN HCL 1,250 MG in SODIUM CHLORIDE 0.9% 250 ML IV SCH (12:31)
[2024-08-12] MEDS: PIPERACILLIN/TAZOBACTAM 4.5 GM/100 ML BAG IV SCH (14:24)
[2024-08-12 19:36] LABS: ANTI-Xa, UFH(UnfractionatedHep 0.26 IU/ml (0.3-0.7)
--- NOTE | 2024-08-13 05:29 | Electrocardiogram Report ---
Test Reason : Blood Pressure : */* mmHG Vent. Rate : 117 BPM Atrial Rate : 117 BPM P-R Int : 140 ms QRS Dur : 96 ms QT Int : 314 ms P-R-T Axes : 35 -3 116 degrees QTcB Int : 438 ms Sinus tachycardia Cannot rule out Anterior infarct , age undetermined Marked ST abnormality, possible anterior subendocardial injury T wave abnormality, consider lateral ischemia Abnormal ECG No previous ECGs available Confirmed by Elgin Palafox ([id number]) on 08/13/2024 5:29:13 AM Referred By: REFERRED SELF Confirmed By: Elgin Palafox
--- NOTE | 2024-08-13 05:29 | Electrocardiogram Report ---
Test Reason : Blood Pressure : */* mmHG Vent. Rate : 87 BPM Atrial Rate : 87 BPM P-R Int : 144 ms QRS Dur : 94 ms QT Int : 368 ms P-R-T Axes : 44 22 109 degrees QTcB Int : 442 ms Normal sinus rhythm ST depression, consider subendocardial injury Nonspecific T wave abnormality Abnormal ECG When compared with ECG of 11-Aug-2024 17:44, T wave inversion less evident in Lateral leads Confirmed by Elgin Palafox ([id number]) on 08/13/2024 5:29:34 AM Referred By: REFERRED SELF Confirmed By: Elgin Palafox
--- NOTE | 2024-08-13 05:30 | Electrocardiogram Report ---
Test Reason : Blood Pressure : */* mmHG Vent. Rate : 85 BPM Atrial Rate : 85 BPM P-R Int : 152 ms QRS Dur : 86 ms QT Int : 390 ms P-R-T Axes : 27 -5 135 degrees QTcB Int : 464 ms Normal sinus rhythm with sinus arrhythmia Inferior infarct , age undetermined Abnormal ECG When compared with ECG of 11-Aug-2024 19:42, Inferior infarct is now Present ST less depressed in Anterior leads Confirmed by Elgin Palafox ([id number]) on 08/13/2024 5:30:19 AM Referred By: REFERRED SELF Confirmed By: Elgin Palafox
[2024-08-13 07:58] LABS: Basophils # (auto) 0.03 K/uL (0.00-0.20); Basophils % (auto) 0.5 %; Eosinophils # (auto) 0.55 K/uL (0.00-0.50); Eosinophils % (auto) 8.8 %; Hematocrit (blood only) 36.6 % (42.0-52.0); Hemoglobin 11.7 g/dl (14.0-18.0); Immature Granulocytes # (auto) 0.01 K/uL (0.01-0.20); Immature Granulocytes % (auto) 0.2 %; Lymphocytes # (auto) 1.11 K/uL (1.20-3.40); Lymphocytes % (auto) 17.8 %; Mean Corpuscular Hemoglobin 29.8 pg (25.0-34.0); Mean Corpuscular Volume 93.1 fL (80.0-100.0); Mean Platelet Volume 10.3 fL (9.4-12.4); Monocytes # (auto) 0.62 K/uL (0.11-0.59); Neutrophils % (auto) 62.7 %; Platelet Count 145 K/uL (130-400); RDW Coefficient of Variation 14.5 % (11.5-14.5); RDW Standard Deviation 49.4 fL (36.4-46.3); Red Blood Count 3.93 M/uL (4.70-6.10); White Blood Count 6.22 K/ul (4.8-10.8)
[2024-08-13 08:05] LABS: BUN Creatinine Ratio 9.8 (10-20); Calcium 8.1 mg/dl (8.6-10.3); Creatinine Clr Calc Pharmacy 41.9 ml/min; Potassium 4.3 mmol/L (3.5-5.1)
[2024-08-13 08:10] LABS: ANTI-Xa, UFH(UnfractionatedHep 0.26 IU/ml (0.3-0.7)
[2024-08-13 08:12] LABS: Troponin I High Sensitivity 10138.4 pg/ml (0-20)
--- NOTE | 2024-08-13 08:20 | Pharmacy Report ---
Pharmacy PK ABX Note - Date of Service August 13, 2024 - Assessment and Plan Assessment 08/13: * Day #2 of abx. Leukocytosis resolved. SCr stable. No growth in any cultures to date. * Vanc level was therapeutic this AM. 08/12: 83 year old M receiving Vancomycin + Zosyn + Doxycycline for treatment of CAP. * Day #1 of antimicrobial therapy. * Low grade fever x 1 upon presentation. Leukocytosis present. Lactate and procal elevated. SCr 1.44 mg/dL, unknown baseline. * Blood cultures pending. Respiratory biofire and MRSA nasal swab negative. Attending would like to keep vancomycin until blood cultures result. * Will order a random level early in the course tomorrow morning to hopefully avoid weekend levels. Plan Vancomycin * Current regimen: 1250 mg IV every 24 hours * Random level obtained 08/13/24 resulted as 10.9 mcg/mL. This is predicted to achieve target AUC/SOBEIDA of 400-600 mg/L.hr * Predicted AUC at steady state: 480 mg/L.hr * Continue 1250 mg IV every 24 hours * Repeat random level ordered for: 08/16/24 Zosyn * 4.5 g IV every 8 hours Doxycycline * 100 mg IV every 12 hours Pharmacy will continue to follow and will adjust dose/frequency as necessary. Thank you. Pharmacy has transitioned to AUC monitoring for vancomycin. AUC/SOBEIDA is the preferred PK/PD target and is associated with decreased risk of nephrotoxicity compared to traditional trough targets.
--- NOTE | 2024-08-13 08:47 | Cardiology Progress Note ---
Date of Service August 13, 2024 Assessment & Plan (1) Sepsis: (2) Non-ST elevation UT (NSTEMI): (3) Abnormal EKG: (4) ASCVD (arteriosclerotic cardiovascular disease): (5) HTN, goal below 130/80: (6) Dyslipidemia, goal LDL below 70: Plan 83-year-old male admitted on August 11, 2024 after presenting to the ER with fever, nausea, and vomiting, acute sepsis. EKG abnormal. High-sensitivity troponin peaked at 12,555.6 pg/mL. 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 Patient with known underlying CAD status post PCI by Dr. Del whitney 2005, hypertension, and dyslipidemia. Options of management discussed. Continue IV heparin, aspirin, and beta-xavier therapy. Resume rosuvastatin. Continue to hold amlodipine and lisinopril. Maintain NPO status, diagnostic cardiac catheterization later today. Admission and Anticipated Discharge Date Admission Date: August 11, 2024 Supervising Physician Co-Signing Physician Notes Patient seen and personally examined both prior to and after cardiac catheterization. Coronary angiography demonstrated chronic right coronary artery occlusion and greater than 80% distal left main stenosis. Distal disease in the left anterior sending but targets within the left anterior descending, left anterior sending diagonal, circumflex and probable distal right coronary artery filling via collateral. Very active 83-year-old torrez. Presents with acute illness possibly viral mediated with GI complaints nausea and vomiting but with ultimate precipitation of non-STEMI myocardial infarction. History of longstanding hypertension. Blood pressure is now improved Plan: Discussed results of cardiac catheterization. Warrant surgical evaluation. Insurance cover mandates [facility] for tertiary care. Will make arrangements for transfer. Amlodipine restarted at reduced dose of 5 mg/day. Continue metoprolol tartrate, IV heparin Subjective Patient seen and examined. Chart, medications, telemetry reviewed. Feeling better. No complaints. Denies chest pain, shortness of breath, orthopnea Telemetry: Sinus bradycardia/sinus rhythm, heart rates predominantly in the 50s and 60s. Physical Exam Physical Exam: General: A&Ox3. NAD. HENT: Normocephalic. Atraumatic. Eyes: PER. Conjunctiva pink, sclera clear. Neck: No JVD. Heart: Regular at 70 bpm. Lungs: Clear to auscultation. Abdomen: +BS. Soft. Nontender. No masses or organomegaly. Extremities: Minimal edema. No cyanosis Limited neurological examination is without focal deficits. Pulses: radial=2/4, posterior tibial=1-2/4. Results & Data Vital Signs (Past 12 Hours) Vital Signs Temp Pulse Pulse Resp BP Pulse Ox O2 Del Method 08/13/24 07:00 36.7 C 98 H 20 127/74 96 Nasal Cannula 08/13/24 03:22 36.6 C 95 H 18 125/77 94 Nasal Cannula 08/13/24 00:00 70 08/12/24 22:38 36.9 C 70 18 125/71 95 Nasal Cannula O2 Flow Rate 08/13/24 07:00 08/13/24 03:22 08/13/24 00:00 08/12/24 22:38 2 Laboratory Results Cardiac Enzymes 08/12/24 08/12/24 08/12/24 Range/Units 09:32 15:23 23:25 Troponin I High Sens 74679.5 H* D 27439.3 H* 10856.6 H* (0-20) pg/ml 08/13/24 Range/Units 07:19 Troponin I High Sens 66872.4 H* (0-20) pg/ml CBC 08/13/24 Range/Units 07:19 WBC 6.22 (4.8-10.8) K/ul RBC 3.93 L (4.70-6.10) M/uL Hgb 11.7 L (14.0-18.0) g/dl Hct 36.6 L (42.0-52.0) % Plt Count 145 (130-400) K/uL Neut # (Auto) 3.90 (1.40-6.50) K/uL Lymph # (Auto) 1.11 L (1.20-3.40) K/uL [place] # (Auto) 0.62 H (0.11-0.59) K/uL Eos # (Auto) 0.55 H (0.00-0.50) K/uL Baso # (Auto) 0.03 (0.00-0.20) K/uL Comprehensive Metabolic Panel 08/13/24 Range/Units 07:19 Sodium 136 (136-145) mmol/L Potassium 4.3 (3.5-5.1) mmol/L Chloride 107 (98-107) mmol/L Carbon Dioxide 26 (21-32) mmol/L BUN 15 (6-23) mg/dl Creatinine 1.53 H (0.6-1.4) mg/dl Glucose 104 H (70-99(Fasting)) mg/dl Calcium 8.1 L (8.6-10.3) mg/dl Intake and Output 08/12/24 08/13/24 08/13/24 22:59 06:59 14:59 Intake Total 366.9 / 3110.1 370.1 / 3110.1 Balance 366.9 / 2860.1 370.1 / 2860.1 Intake: IV 316.9 / 2820.1 370.1 / 2820.1 Doxycycline Hyclate 100 mg In 100 / 200 Dextrose 5% Mini-B 100 ml @ 50 mls/hr IV Q12H JACK Rx#:[id number] Heparin 27596 Unit/500 ml D5w 216.9 / 670.1 170.1 / 670.1 25,000 units In 500 ml @ 1,050 UNITS/HR 21 mls/hr IV .[id number] JACK Rx#:[id number] Piperacillin/Tazobactam 4.5 gm 100 / 200 100 / 200 In 100 ml @ 25 mls/hr IV Q8H JACK Rx#:[id number] Oral 50 / 290 Other: # Unmeasured Voids 1 1 Weight 93.2 kg Weight Measurement Method Built in [facility] (1) Sepsis Sepsis acute organ dysfunction status: with acute organ dysfunction Sepsis type: sepsis due to unspecified organism Severe sepsis acute organ dysfunction type: unspecified Severe sepsis shock status: without septic shock Qualified Code(s): A41.9 - Sepsis, unspecified organism; R65.20 - Severe sepsis without septic shock
--- NOTE | 2024-08-13 09:12 | Pre Anesthesia Assessment ---
Date of Service August 13, 2024 Pre Sedation Assessment Vital Signs Temp Pulse Pulse Resp BP BP Pulse Ox 08/13/24 09:02 62 17 152/83 H 97 08/13/24 07:00 36.7 C 98 H 20 127/74 96 08/13/24 03:22 36.6 C 95 H 18 125/77 94 08/13/24 00:00 70 08/12/24 22:38 36.9 C 70 18 125/71 95 08/12/24 19:12 36.7 C 66 18 122/76 94 08/12/24 14:50 36.6 C 69 18 106/76 98 08/12/24 14:46 72 08/12/24 11:21 36.9 C 08/12/24 11:00 88 33 H 95 08/12/24 10:06 85 39 H 94 08/12/24 10:06 115/67 08/12/24 09:21 98 H 38 H 123/72 93 O2 Del Method O2 Flow Rate 08/13/24 09:02 Nasal Cannula 2 08/13/24 07:00 Nasal Cannula 08/13/24 03:22 Nasal Cannula 08/13/24 00:00 08/12/24 22:38 Nasal Cannula 2 08/12/24 19:12 Nasal Cannula 2 08/12/24 14:50 Nasal Cannula 2 08/12/24 14:46 08/12/24 11:21 08/12/24 11:00 08/12/24 10:06 Nasal Cannula 2 08/12/24 10:06 08/12/24 09:21 Nasal Cannula 2 Cardiovascular RRR, no murmur, no edema Respiratory normal respiratory effort, lungs clear to auscultation Pre-Sedation Airway Assessment Smoking Status: Never smoker Hx Sleep Apnea: No Short, Thick Neck: No Thyromental Distance: > or= 3.5 Finger Breadths Oral Cavity: + Dentures Mallampati Class: III ASA: ASA4 NPO Status Date of Last Intake of Fluids: 08/12/24 Date of Last Intake of Solid Food: 08/12/24 Notes The planned sedation has been discussed with the patient. Informed Consent was obtained. I have identified the patient, determined the appropriateness of sedation and have assessed the patient immediately prior to the procedure. All medicine(s) and interventions are by my order.
[2024-08-13] MEDS: NITROGLYCERIN/D5W 100MCG/ML 20ML SYR ONE (09:39)
[2024-08-13] MEDS: niCARdipine 2,000 MCG/20 ML SYR ONE (09:39)
[2024-08-13] MEDS: HEPARIN (PORCINE) 1000 UNIT/ML 10 ML (CATH LAB USE ONLY) ONE (10:13)
[2024-08-13] MEDS: MIDAZOLAM HCL 1 MG/ML 2ML VIAL ONE (10:13)
[2024-08-13] MEDS: fentaNYL citrate PF 100 MCG/2 ML VIAL ONE (10:13)
[2024-08-13] MEDS: OPTIRAY 350 ONE (10:14)
--- NOTE | 2024-08-13 10:19 | Post Anesthesia Assessment ---
Date of Service August 13, 2024 Post Sedation Assessment Vital Signs Temp Pulse Pulse Resp BP Pulse Ox O2 Del Method 08/13/24 09:02 62 17 152/83 H 97 Nasal Cannula 08/13/24 07:00 36.7 C 98 H 20 127/74 96 Nasal Cannula 08/13/24 03:22 36.6 C 95 H 18 125/77 94 Nasal Cannula 08/13/24 00:00 70 08/12/24 22:38 36.9 C 70 18 125/71 95 Nasal Cannula 08/12/24 19:12 36.7 C 66 18 122/76 94 Nasal Cannula 08/12/24 14:50 36.6 C 69 18 106/76 98 Nasal Cannula 08/12/24 14:46 72 08/12/24 11:21 36.9 C 08/12/24 11:00 88 33 H 95 O2 Flow Rate 08/13/24 09:02 2 08/13/24 07:00 08/13/24 03:22 08/13/24 00:00 08/12/24 22:38 2 08/12/24 19:12 2 08/12/24 14:50 2 08/12/24 14:46 08/12/24 11:21 08/12/24 11:00 Recovery Score Activity: Moves 4 extremities Respiration: Deep Breath/Cough Circulation: +/-20% PreAnes Value Consciousness: Fully Awake Oxygen Saturation: > 92% On Room Air Discharge Sedation Level of Care: Fast Track Phase II Post Sedation Plan On clinical assessment, the patient appears to have tolerated the sedation without complications. Patient is recovering as anticipated. Patient will continue to be monitored by nursing and may be discharged when sedation discharge criteria are met per below protocol. Upon Completions of procedure up to 15 minutes continue every 5 minute vital signs and the P.A.R. score; then discharge to a Phase I or Fast Track to Phase II per the following guidelines: * Discharge Patient to appropriate Phase II area if PAR is 8 or greater or retur n to pre- procedure baseline. The post - procedure orders will be as directed. * If PAR score is less than 8 or not return to pre-procedure baseline then patient will follow Phase I monitoring till PAR is reached for Phase II. The Phase I may be done in procedure room or may call to secure a Phase I area. * If naloxone or flumazenil are used for reversal, hold in Phase I for continued monitoring from when last reversal dose was given for a minimum of 60 minutes or longer pending the nurse and/or physician discretion of patient condition before discharge to Phase II. Please call the Sedation Physician to re-evaluate and complete post-note for discharge to Phase II area. Do NOT discharge from procedure sedation or Phase 1 until post- sedation evaluation note is complete by procedure /sedation MD Sedation Discharge Instructions to be given to the patient at discharge to home. [facility] [place] Procedure Codes (Charges) Indication for Procedure Indication for procedure: NSTEMI h/o CAD Sedation/Anesthesia Procedure 1: Sedation/Anesthesia: 78212 Mod Sedation by the same physician;Init15 Min Child Age 5 & Up (initial 15 min, start 0948) Total Sedation Time (minutes): 26 Procedure 2: Sedation/Anesthesia: 72514 Mod Sedation by the same physician; Ea [id number] Minutes (additional 11 min, end 1014)
--- NOTE | 2024-08-13 10:31 | Cardiac Catheterization ---
[facility] Data: Screening Unit Registered Nurse Cardiac Status Clinical evaluation leading to the procedure CAD Presenation: Non STEMI Anginal Classification: No Symptoms Heart Failure: No Cardiogenic Shock within 24 Hours: No Cardiac Arrest within 24 Hours: No Imaging Studies Past 6 Months: Yes Stress Studies Past 6 Months: No Coronary Anatomy Dominant: Right Left Main (% Stenosis): Proximal (40%) and Distal (95%) LAD (% Stenosis): Proximal (Diffuse up to 50%), Mid (Aneurysm and then up to 90%) and Distal (Apical 95%) D1 (% Stenosis): Ostial (99%) D2 (% Stenosis): Normal Circumflex (% Stenosis): Proximal (Up to 50%) and Distal (100%) OM1 (% Stenosis): Proximal (30%) RCA (% Stenosis): Ostial (100%), Mid (100%) and Distal (Fills via right to right collateralization) R PDA (% Stenosis): Ostial (100%, fills via left to right) R PL1 (% Stenosis): Normal (Fills via right to right and left to right) Ramus (% Stenosis): Proximal (Up to 50%) Diagnostic Physicians Name: Luis Mari MD, PhD Closure Device Percutaneous Entry Location: Radial Closure Device: Radial Band Recommendations: CABG (Tertiary center for heart team evaluation) Cardiac Cath Procedure Full Procedure Date August 13, 2024 Pre-Procedure Diagnosis Pre-Procedure Diagnosis: Non STEMI AUC Score AUC Score: 07 Post-Procedure Diagnosis Post-Procedure Diagnosis: Severe CAD Procedure(s) Performed Procedure(s) Performed: Coronary Angiography and Ultrasound Guided Vascular Access [employer] Luis Mari MD, PhD Estimated Blood Loss Estimated Blood Loss: 5 cc Medication(s) Medication(s): Fentanyl, Heparin, Hydralazine, Lidocaine 1%, Nicardipine, Nitroglycerin and Versed Summary of Findings Brief description: Patient was brought to the cardiac catheterization suite where he was shaved and prepped in a sterile fashion. Sedated using IV Versed and fentanyl. Soft tiss ues of the right wrist were anesthetized using 2 mL of 1% Xylocaine. Using the ultrasound for guidance (image saved), the right radial artery was accessed and a 6 Kazakh radial artery glide sheath was placed. Patient was provided anticoagulation with IV heparin and antispasmodics including nicardipine and nitroglycerin. All catheters were advanced and exchanged over a 0.035 J-tip wire. Left coronary angiography in orthogonal views with a 5 Kazakh EBU 3.0 guide catheter (5 Kazakh Bowden 4 and 5 Kazakh JL 3.5 diagnostic catheters were unsuccessful). Right coronary angiography in orthogonal views with a 5 Kazakh JR4 diagnostic catheter. (5 Kazakh Bowden 4 diagnostic catheter was unsuccessful) Diagnostic catheters were removed. Radial artery sheath was removed. Hemostasis was obtained using a TR band. Patient was hemodynamically stable and asymptomatic. He was returned to the recovery area. This ended the case. Coronary angiography: [employer]-cmoqy-fjivzit vessel. Trifurcates into ramus, circumflex, and LAD. Proximally there is 40 to 50% stenosis and distally 95% stenosis. Moderate to heavy calcification. ABC-svqjx-lctnkue and transapical. Proximal diffuse disease with up to 85% stenosis at the origin of the first diagonal. Mid segment then has an aneurysmal portion and then diffuse disease with up to 90% stenosis at the origin of the second diagonal. The distal vessel remains large in caliber with mild luminal irregularities until the apex where there is a focal 95% stenosis. D1 is large but has ostial 99% stenosis. D2 is small and has no angiographically significant disease. [id number]-qnkbtmo. Proximally there is up to 50% stenosis. ZBx-yharz-bifipjy and probably nondominant. Travels in the AV groove where the proximal segment has diffuse calcified disease of up to 50% stenosis. It gives a large OM1 with proximal stenosis of no more than 30%. The AV groove vessel then becomes medium in caliber and continues distally where it is a 100% occluded. RCA-this appears to be large caliber. It is 100% occluded at the ostium. It fills antegrade via R-R collateralization through the conus and RV marginal branch. Reconstitutes in the early distal RCA and this vessel appears large and without significant stenosis. It then bifurcates distally into multi branching posterolateral. Also to the PDA which appears to be 100% occluded. The PDA and 1 posterolateral branch fills via hjon-qr-hmiid collateralization. Summary: 1. Severe multivessel coronary artery disease. Referral to tertiary center for surgical versus complex PCI revascularization. 2. The distal LAD, diagonal 1, distal RCA, and OM1 all appear to be adequate targets for bypass grafting. 3. Guideline directed medical therapy for secondary prevention of coronary artery disease per primary slimer. Hemodynamics Rest Ao:: 133/79 mmHg Final Ao: 127/73 mm number LV: Not performed Recommendations Recommendations: CABG (Tertiary center for heart team evaluation) Radiation Exposure (mGy) 1527 mGy, fluoroscopy time 7.7 minutes Contrast (mls) 120 cc Anesthesia 1 mg Versed, 25 mcg fentanyl IV. Start 0948, end 1014 Procedural Complication(s) None Disposition Screening Unit Registered Nurse Holding/Recovery I attest to the content of the Intraoperative Record and any orders documented therein. Any exceptions are noted below. [facility] [place] Card Cath Procedure Codes Cardiac Catheterization Procedure 1: Cardiovascular Cath Procedures: 04551 Coronaries Therapeutic Services & Ancillary Procedure 2: Cardiovascular Tx and Anc Procedures: 55302 Ultrasonic Guidance Vascular Access Moderate Sedation Procedure 1: Sedation/Anesthesia: 13544 Mod Sedation by the same physician;Init15 Min Child Age 5 & Up (Initial 15 minutes, start time 0948) Procedure 2: Sedation/Anesthesia: 90646 Mod Sedation by the same physician; Ea [id number] Minutes (Additional 11 minutes, end time 1014) PG Care Time/CCT Total # of Minutes Spent Total Time Spent with Patient: Total time spent is greater than 50% in coordination of care (as documented) at patient's floor/unit and/or counseling patient:
[2024-08-13] MEDS: ROSUVASTATIN CALCIUM 20 MG TAB PO SCH (10:59)
[2024-08-13] MEDS: amLODIPine BESYLATE 5 MG TAB PO SCH (13:51)
--- NOTE | 2024-08-13 14:14 | Hospitalist Progress Note ---
Date of Service August 13, 2024 Assessment & Plan (1) Sepsis: Plan: 83-year-old male unassigned patient with past med history significant for CAD status post stent in 2005, hypertension, hyperlipidemia, GERD presents with nausea vomiting and fever. Possible Sepsis Pneumonia Patient presents with nausea vomiting and fever. Leukocytosis present on admission Procalcitonin elevated, lactate elevated Respiratory BioFire negative CTA chest showed patchy inflammatory groundglass densities in the lingula CT abdomen/pelvisno acute findings MRSA nares negative Lyme screen negative Blood cultureno growth in 24 hours Plan to treat for pneumonia for total of 7 days. Patient is currently on IV Zosyn and doxycycline; plan to change to cefdinir and doxycycline when ready for discharge. Non-ST elevated NH Possible Demand Ischemia Hx of CAD s/p stent High sensitive troponin elevated to 331 on admission; uptrending to 11,000 EKG on admission showed sinus tachycardia with ST wave changes in inferolateral leads Echocardiogram shows severe asymmetric hypertrophy involving the septum and apex. Mild hypokinesis of the inferior and posterior wall at the base. EF of 65 to 70%. Patient was started on IV heparin, aspirin, beta-xavier and statin for NSTEMI. Patient underwent cardiac cath on 08/13; found to have severe multivessel coronary artery disease. Patient was referred to [facility] for surgical versus complex PCI revascularization. Hypertension On amlodipine, continue. Also on metoprolol tartrate 25 mg twice a day GERD On omeprazole and famotidine, continue Hyperlipidemia On statin, continue DVT prophylaxis On IV heparin Disposition Telemetry Full code. Time spent evaluating patient, direct bedside care, chart review, placing orders, interpretation of diagnostic studies, discussion with consultants, patient, and family members, as well as other required patient management activi ties is 60 minutes Please note the above document was generated using voice recognition software. It may contain grammatical, syntax or spelling errors. Any formal questions or concerns about the content, text or information contained within the body of this dictation should be directly addressed to the provider for clarification Admission and Anticipated Discharge Date Admission Date: August 11, 2024 Subjective Patient seen and examined at bedside. He is comfortable; not in distress. He denies any chest pain, palpitation or shortness of breath No significant events overnight Review of Systems Review of Systems: All systems reviewed & are unremarkable except as noted in Subjective Physical Exam Physical Exam: Constitutional: Alert oriented x 3; not in distress. Respiratory: Bilateral vesicular breath sound Cardiovascular: RRR, no murmur, no edema Vessels: no JVD or carotid bruit Chest: normal inspection of chest Abdomen: normal bowel sounds, soft, nontender, no hepatosplenomegaly Musculoskeletal: no cyanosis or clubbing, extremities motor strength 5/5 Skin: no rashes, warm and dry normal turgor Neurologic: PERRL, EOMI, accommodation nl, no face palsy, no dysarthria CN's II- XI intact bilaterally and moves all extremities Psychiatric: A+Ox3, euthymic affect Results & Data Results & Data Vital Signs (Past 12 Hours) Vital Signs Temp Pulse Resp BP Pulse Ox O2 Del Method O2 Flow Rate 08/13/24 13:34 60 20 149/84 H 96 Nasal Cannula 2 08/13/24 12:34 55 L 18 172/100 H 100 Nasal Cannula 2 08/13/24 12:00 180/110 H 08/13/24 11:34 62 22 223/136 H 99 Nasal Cannula 2 08/13/24 11:04 36.4 C L 50 L 18 127/79 95 Room Air 08/13/24 10:38 63 16 167/80 H 96 Room Air 08/13/24 10:23 63 16 152/83 H 97 Room Air 08/13/24 09:02 62 17 152/83 H 97 Nasal Cannula 2 08/13/24 07:00 36.7 C 98 H 20 127/74 96 Nasal Cannula 08/13/24 03:22 36.6 C 95 H 18 125/77 94 Nasal Cannula (1) Sepsis Sepsis acute organ dysfunction status: with acute organ dysfunction Sepsis type: sepsis due to unspecified organism Severe sepsis acute organ dysfunction type: unspecified Severe sepsis shock status: without septic shock Qualified Code(s): A41.9 - Sepsis, unspecified organism; R65.20 - Severe sepsis without septic shock
--- NOTE | 2024-08-13 14:17 | Discharge Summary ---
Date of Service August 13, 2024 Admission HPI Per Admitting Provider 83-year-old male unassigned patient with past med history significant for CAD status post stent in 2005, hypertension, hyperlipidemia, GERD presents with nausea vomiting and fevers. Patient says since Friday he was constipated. Last night had a lot of nausea and vomiting. Today was running fevers. Not feeling well. Says his grandson brought him to the hospital. Denies any chest pain. Denies cough. Denies shortness of breath. Denies any headache. No back pain. No neck pain. Some abdominal discomfort from constipation. Denies bloody stools. Micturating okay. Ambulates okay. 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 In 2017 he had a skull fracture as tractor tire blew and hit him on head and says he was in [facility] for [facility]. Currently hemodynamics are okay. Patient says he is follows with [facility] cardiology. Past medical history. As mentioned above Past surgical history. Cardiac cath. Open skull for removal of hematoma bilateral in 2017. Repair of right eye socket. Repair of nasomaxillary complex fracture. Repair of right eye wound cornea. Social history. . No smoking. No alcohol history no drug use. Family history. No famished on file. Admission Exam Per Admitting Provider General- Not in acute distress Head- atraumatic Eyes- Right eye pupil fixed and dilated. ENT- oropharynx clear Neck- supple, no JVD. Lungs- clear to auscultation no wheezing or crackles Heart- regular rate and rhythm; no murmur, no gallop. Abdomen- normal bowel sounds, soft, nontender, no distension Extremities- no pretibial edema, no erythema seen Neuro- alert, oriented EOMI; no facial palsy; no dysarthria; moves extremities Principal Diagnosis Pneumonia NSTEMI Discharge Exam Constitutional: Alert oriented x 3; not in distress. Respiratory: Bilateral vesicular breath sound Cardiovascular: RRR, no murmur, no edema Vessels: no JVD or carotid bruit Chest: normal inspection of chest Abdomen: normal bowel sounds, soft, nontender, no hepatosplenomegaly Musculoskeletal: no cyanosis or clubbing, extremities motor strength 5/5 Skin: no rashes, warm and dry normal turgor Neurologic: PERRL, EOMI, accommodation nl, no face palsy, no dysarthria CN's II- XI intact bilaterally and moves all extremities Psychiatric: A+Ox3, euthymic affect Discharge Data Allergies Allergy/AdvReac Type Severity Reaction Status Date / Time No Known Allergies Allergy Verified 08/11/24 19:43 Consultations 08/11/24 20:28 ED Decision to Admit Stat 08/12/24 08:00 Consult Cardiology Routine Procedures Performed Operation Date: 08/13/24 09:30 Actual Procedures p Cath, Coronaries ONLY (no LV) - Luis Mari MD, PhD s Cineradiography w/Routine Exam - Luis Mari MD, PhD Ordered Studies 08/11/24 19:10 CT abd pelvis IV con only Stat CT angio chest PE protocol Stat 08/13/24 06:35 CL Cath Imgs for PACS use only Routine Hospital Course (1) Sepsis: 83-year-old male unassigned patient with past med history significant for CAD status post stent in 2005, hypertension, hyperlipidemia, GERD presents with nausea vomiting and fever. Pneumonia Possible Severe sepsis without septic shock Acute Kidney Injury Patient presents with nausea vomiting and fever. Leukocytosis present on admission Procalcitonin elevated, lactate elevated Respiratory BioFire negative CTA chest showed patchy inflammatory groundglass densities in the lingula CT abdomen/pelvisno acute findings MRSA nares negative Lyme screen negative Blood cultureno growth in 24 hours Plan to treat for pneumonia for total of 7 days. Patient is currently on IV Zosyn and doxycycline; plan to change to cefdinir and doxycycline when ready for discharge. NSTEMI Hx of CAD s/p stent High sensitive troponin elevated to 331 on admission; uptrending to 11,000 EKG on admission showed sinus tachycardia with ST wave changes in inferolateral leads Echocardiogram shows severe asymmetric hypertrophy involving the septum and apex. Mild hypokinesis of the inferior and posterior wall at the base. EF of 65 to 70%. Patient was started on IV heparin, aspirin, beta-xavier and statin for NSTEMI. Patient underwent cardiac cath on 08/13; found to have severe multivessel coronary artery disease. Patient transferred to [facility] for surgical versus complex PCI revascularization. Please note the above document was generated using voice recognition software. It may contain grammatical, syntax or spelling errors. Any formal questions or concerns about the content, text or information contained within the body of this dictation should be directly addressed to the provider for clarification Total Time Total Time Spent Total Time Spent (In Minutes): 45 Total Time Includes: Examination of the Patient, Discharge Planning, Medication Reconciliation, Communication With Other Providers and Other Discharge Plan Discharge Items Patient Disposition: Transfer Acute Care Hospital Reason For Visit: SEPSIS,NSTEMI Discharge Diagnosis: Pneumonia NSTEMI Severe three-vessel coronary artery disease Activity: Resume your previous activity Non-emergency contact: Primary Care Provider Call non-emergency contact if: you have any medication questions and your symptoms worsen Follow-up/Referrals: PCP,NO [Primary Care Provider] - Diet: Regular Addtl Attending Provider Instructions: Date of Service: August 13, 2024 Current Inpatient Medications Albuterol (Albuterol Hfa 8 Gm Inhaler) 2 puffs INH Q6H PRN PRN Reason: Shortness Of Breath Stop: 09/11/24 00:18 Amlodipine Besylate (Amlodipine Besylate 5 Mg Tab) 5 mg PO QAM [facility] Stop: 09/12/24 12:59 Last Admin: 08/13/24 13:51 Dose: 5 mg Aspirin (Aspirin 81 Mg Ectab) 81 mg PO DAILY [facility] Stop: 09/11/24 08:59 Last Admin: 08/13/24 08:45 Dose: 81 mg Famotidine (Famotidine 20 Mg Tab) 20 mg PO BID [facility] Stop: 09/11/24 08:59 Last Admin: 08/13/24 11:00 Dose: 20 mg Heparin Sodium/Dextrose (Heparin 60876 Unit/500 Ml D5w) 25,000 units in 500 mls @ 23 mls/hr IV .[id number] [facility]; Protocol Stop: 09/10/24 20:44 Last Titration: 08/13/24 10:59 Dose: 1,150 units/hr, 23 mls/hr Piperacillin Sod/Tazobactam Sod (Zosyn) 4.5 gm in 100 mls @ 25 mls/hr IV Q8H [facility]; Protocol Stop: 08/17/24 13:59 Last Admin: 08/13/24 13:41 Dose: 25 mls/hr Doxycycline Hyclate 100 mg/ (Dextrose) 100 mls @ 50 mls/hr IV Q12H [facility] Stop: 08/17/24 07:59 Last Infusion: 08/13/24 13:18 Dose: Infused Metoprolol Tartrate (Metoprolol Tartrate 25 Mg Tab) 25 mg PO BID [facility] Stop: 09/11/24 10:44 Last Admin: 08/13/24 08:46 Dose: 25 mg Nitroglycerin (Nitroglycerin Sl 0.4 Mg/Tab Tab) 0.4 mg SL Q5M PRN PRN Reason: Chest Pain Stop: 09/11/24 00:18 Ondansetron HCl (Ondansetron Inj 2 Mg/Ml 2 Ml Vial) 4 mg IV Q6H PRN PRN Reason: Nausea Stop: 09/11/24 00:18 Pantoprazole Sodium (Pantoprazole 40 Mg Tab) 40 mg PO DAILY [facility] Stop: 09/11/24 08:59 Last Admin: 08/13/24 08:46 Dose: 40 mg Rosuvastatin Calcium (Rosuvastatin Calcium 20 Mg Tab) 20 mg PO QAM [facility] Stop: 09/12/24 08:59 Last Admin: 08/13/24 10:59 Dose: 20 mg Pending Studies at Discharge: No Stand-Alone Forms: [facility] Skilled Items Patient informed of condition?: Yes DNR: No Discharge Level of Care: Other Communicable Disease: No Discharge Prognosis: Stable Lines: Peripheral IV Urinary Catheter: No Medications and DC Order Prescriptions: Continued ondansetron HCl 4 mg tablet 4 mg PO TID PRN (Reason: NAUSEA/VOMITING) famotidine 40 mg tablet 20 mg PO BID Loratadine-D 5-120 mg tablet extended release 12 hr 1 tab PO DAILY nitroglycerin 0.4 mg tablet, sublingual 0.4 mg sublingual DIRECTED PRN (Reason: Chest Pain) omeprazole 20 mg capsule,delayed release(DR/EC) 20 mg PO DAILY albuterol sulfate 90 mcg/actuation HFA aerosol inhaler 2 puff INHALATION DIRECTED PRN (Reason: Shortness Of Breath) aspirin 81 mg Tablet,Delayed Release (Dr/Ec) 81 mg PO DAILY rosuvastatin 20 mg tablet 20 mg PO DAILY metoprolol tartrate 25 mg tablet 25 mg PO BID amlodipine [Norvasc] 10 mg Tablet 10 mg PO DAILY lisinopril 10 mg Tablet 10 mg PO DAILY Discharge Orders: Discharge Order (Routine); Ordered 08/13/24 Ordered By: Rashid Watkins Admission Data Admit Date/Time: 08/11/24 22:05 Attending Provider: Rashid Watkins Admit Provider: Isael Barragan Primary Care Provider: PCP,NO Other Providers: Isael Barragan; Henrry Malagon
[2024-08-13 17:49] LABS: ANTI-Xa, UFH(UnfractionatedHep 0.46 IU/ml (0.3-0.7)
--- NOTE | 2024-08-13 21:55 | Electrocardiogram Report ---
Test Reason : Blood Pressure : */* mmHG Vent. Rate : 59 BPM Atrial Rate : 59 BPM P-R Int : 164 ms QRS Dur : 96 ms QT Int : 404 ms P-R-T Axes : 47 0 136 degrees QTcB Int : 399 ms Sinus bradycardia Possible Inferior infarct Abnormal ECG When compared with ECG of 12-Aug-2024 10:00, Inverted T waves have replaced nonspecific T wave abnormality in Anterolateral leads Confirmed by Elgin Palafox ([id number]) on 08/13/2024 9:54:38 PM Referred By: REFERRED SELF Confirmed By: Elgin Palafox
[2024-08-17 06:17] LABS: Babesia microti DNA Not Detected (Not Detected)
[2024-08-18 03:43] LABS: Q Fever IgG, Phase I NEGATIVE; Q Fever Phase I IgM Antibody NEGATIVE; Q Fever Phase II IgG Antibody NEGATIVE; Q Fever Phase II IgM Antibody NEGATIVE
== END 2024-08-13 20:20 | disposition short-term general hospital (02) | DRG 871 ==
LOC: ED 17:17 → EDINP 22:05 → SUATTDRO 22:05 → EDINP 08-12 00:20 → 1E 08-12 11:06 → 2E 08-12 14:45
PROC: CLB.CCO (2024-08-13 09:30)